=== PATIENT | female | born 1975 | race Caucasian/White ===

== ENCOUNTER → 2023-12-11 14:27 | Outpatient (REF) | payer OTHER, SELFPAY | LOC: HWWDC 14:27 | PROVIDERS: ATTENDING PHYSICIAN Surgery Surgical Critical Care; FAMILY PHYSICIAN Family Medicine | DX: Z12.31 Encounter for screening mammogram for malignant neoplasm of breast (principal) | CPT/HCPCS: 77063; 77067 ==

== ENCOUNTER → 2024-12-12 10:05 | Outpatient (REF) | payer OTHER, SELFPAY | LOC: HWWDC 10:05 | PROVIDERS: ATTENDING PHYSICIAN Surgery Surgical Critical Care; FAMILY PHYSICIAN Family Medicine | DX: Z12.31 Encounter for screening mammogram for malignant neoplasm of breast (principal) | CPT/HCPCS: 77063; 77067 ==

== ENCOUNTER 2024-12-15 23:17 | Emergency (ER) | payer OTHER, SELFPAY ==
[2024-12-15 23:28] VITALS: BP 176/96
[2024-12-15 23:55] VITALS: BMI 35.6
[2024-12-16 00:38] VITALS: BP 152/73
[2024-12-16 00:50] LABS: % Basophils 0.7 % (0-2); % Eosinophils 1.4 % (0-6); % Immature Granulocytes 0.4 % (0-0.5); % Lymphocytes 15.4 % (20.5-51.1); % Neutrophils 77.1 % (42.2-75.2); Absolute Basophils 0.1 10^3/uL (0-0.2); Absolute Eosinophils 0.1 10^3/uL (0-0.7); Absolute Lymphocytes 1.6 10^3/uL (1.2-3.4); Absolute Monocytes 0.5 10^3/uL (0.1-0.6); Absolute Neutrophils 7.8 10^3/uL (1.4-6.5); Hematocrit 38.5 % (37.0-47.0); Hemoglobin 13.8 g/dL (12.0-16.0); Mean Corp Hgb Conc. 35.8 g/dL (33.0-37.0); Mean Corpuscular Hgb 29.2 pg (27.0-31.0); Mean Corpuscular Volume 81.4 fL (81.0-99.0); Mean Platelet Volume 10.3 fL (7.4-10.4); Nucleated Red Blood Cells % 0 %; Platelet Count 277 10^3/uL (130-400); Red Blood Cell Count 4.73 10^6/uL (4.20-5.40); Red Cell Dist. Width 12.5 % (11.5-14.5); White Blood Cell Count 10.1 10^3/uL (4.8-10.8)
[2024-12-16 00:53] LABS: Urine Bilirubin Negative (Negative); Urine Character Clear (Clear); Urine Color Yellow; Urine Glucose Negative (Negative); Urine Ketone 1+ (Negative); Urine Leukocyte Negative (Negative); Urine Nitrite Negative (Negative); Urine Occult Blood Negative (Negative); Urine Urobilinogen Negative (Neg - 1+)
[2024-12-16 00:54] LABS: Urine Albumin Trace (Neg - Trace)
[2024-12-16 01:00] VITALS: BP 157/72
[2024-12-16 01:07] LABS: ALT (SGPT) 30 U/L (0-35); AST (SGOT) 26 U/L (14-36); Albumin 4.6 g/dl (3.5-5.0); Alkaline Phosphatase 81 U/L (38-126); Blood Urea Nitrogen 21 mg/dl (7-17); Calcium 9.7 mg/dl (8.4-10.2); Carbon Dioxide 26 mmol/L (22-30); Chloride 104 mmol/L (98-107); Estimated Creatinine Clearance 96 ml/min; Glucose 142 mg/dl (70-99); Lipase 146 U/L (23-300); Potassium 4.1 mmol/L (3.5-5.1); Sodium 141 mmol/L (135-145); Total Bilirubin 0.5 mg/dl (0.2-1.3); Total Protein 7.9 g/dl (6.3-8.2); eGFR > 60.00
[2024-12-16] MEDS: NSS 1000 IV (01:23)
[2024-12-16] MEDS: PEPCID 20 MG IV (01:23)
[2024-12-16] MEDS: TORADOL 15 MG IV (02:15)
--- NOTE | 2024-12-16 02:32 | ED.GENMED ---
History of Present Illness
General
Chief Complaint: Abdominal Pain
Source: patient
Exam Limitations: none
Time Seen by Provider: 12/16/24 01:05
Nursing documentation reviewed up to this point in time: agreed with
History of Present Illness
History of Present Illness:
49-year-old female presenting to the emergency department today with concerns of epigastric pain and right upper quadrant pain over the past 4 hours associated nausea and vomiting. Has had similar episodes a few times in the last few months.
Denies any chest pain shortness of breath
Past History
Past History
ED Past Medical History: Hypothyroidism
Social History
Tobacco: Non-smoker
Personal:
Living: with family
Review of Systems
Review of Systems
Allergies reviewed?: Yes
All Other Systems: ROS reviewed and negative except as documented in HPI and ROS
Phy Exam
Physical Exam
Physical Exam:
GENERAL: Alert , in no apparent distress
EYE: pupils equal and reactive
NECK: Supple, no significant adenopathy.
ENT: o/p clr, mmm.
CARDIAC: Regular rate and rhythm .
LUNGS: Clear breath sounds bilaterally, no acute respiratory distress, no wheezes/rales/rhonchi
ABDOMEN: Reproducible abdominal pain to the epigastrium some mild pain to the right upper quadrant though negative Lazcano's remainder of the abdomen soft, without focal tenderness, no r/g, no cvat
NEUROLOGICAL: Alert and oriented, no focal neuro deficits
SKIN: Warm and dry, skin intact.
MUSCULOSKELETAL: No edema, well perfused.
PSYCH: Normal and appropriate interaction.
Course
Orders/Labs/Results
Orders:
Orders
12/15/24 23:49
IV Insert/Care/Rem.- Treatment PRN
Complete Blood Count/With Diff Urgent
Comprehensive Metabolic Panel Urgent
Lipase Urgent
Urinalysis Reflex To Culture Urgent
Date Specimen was Collected: 12/15/24
Time Specimen was Collected: 23:49
12/15/24 23:50
Electrocardiogram (*1) Urgent
Reason for Study: Abdominal Pain
EKG- Treatment ONCE
12/16/24 01:13
0.9% Sodium Chloride 1000 ml [Nss] 1,000 ml IV BOLUS
Famotidine [Pepcid] 20 mg IV NOW STA
12/16/24 01:51
US Abdomen Complete/Upper Urgent
Comment:
Reason For Exam: ruq/epigastric pain
12/16/24 02:10
Ketorolac [Toradol] 15 mg IV NOW STA
Abnormal Lab Results
12/16/24
00:36
Absolute Neuts (auto) 7.8 H 10^3/uL
(1.4-6.5)
Neutrophils % 77.1 H %
(42.2-75.2)
Lymphocytes % 15.4 L %
(20.5-51.1)
BUN 21 H mg/dl
(7-17)
Glucose 142 H mg/dl
(70-99)
Urine Ketones 1+ A
(Negative)
12/16/24 00:36
12/16/24 00:36
Vital Signs
Initial and Last Documented VS:
Initial Vital Signs
Temp Pulse Resp BP Pulse Ox
97.8 F 68 20 176/96 99
12/15/24 23:28 12/15/24 23:28 12/15/24 23:28 12/15/24 23:28 12/15/24 23:28
Last Documented Vital Signs
Temp Pulse Resp BP Pulse Ox
97.8 F 68 20 157/72 97
12/15/24 23:28 12/15/24 23:28 12/15/24 23:28 12/16/24 01:00 12/16/24 01:15
MDM/Problems Addressed
MDM/Problems Addressed:
49-year-old female presenting to the emergency department today with concerns of epigastric discomfort over the past 4 hours or so associated nausea and vomiting. Similar episodes a few times in the past. Labs obtained here without acute
abnormalities. Ultrasound performed considering upper abdominal pain. Ultrasound showing mobile gallstones distended gallbladder 9 cm in length upper limits of normal gallbladder wall. Patient here at [facility] has no ongoing discomfor. Has been
asymptomatic for about an hour here. Does not appear to be consistent with a progressive cholecystitis advised for close outpatient follow-up with general surgery. Return precautions given. t
*Critical Care Note
Total Time (30-74mins, 75-104mins- exclusive of procedures): Not Applicable
ED Attending Note
-
Portions of this chart may have been created with voice recognition software.� Occasional wrong word or��sound alike� substitutions may have occurred due to the inherent limitations of voice recognition software.
Discharge Plan
Departure
Patient Disposition: Home (Routine Discharge)
Date of Disposition: 12/16/24
Time of Disposition: 04:57
Patient with high blood pressure during this ER visit?: No
Condition: Good
Covid-19: Not Applicable
Discharge Problem:
Biliary colic
Instructions: Gallstones - Discharge instructions
Prescriptions:
New
ondansetron 4 mg tablet,disintegrating
4 mg PO Q6H PRN (Reason: nausea and vomiting) Qty: 7 0RF
ibuprofen 600 mg tablet
600 mg PO Q8H PRN (Reason: Pain) Qty: 10 0RF
No Action
levothyroxine 100 MCG tablet
100 mcg PO DAILY
ferrous sulfate [Iron (ferrous sulfate)] 325 MG tablet
325 mg PO .4 DAYS A MONTH
cholecalciferol (vitamin D3) [Vitamin D3] 400 UNITS tablet
5,000 units PO DAILY
levothyroxine [Synthroid] 75 mcg tablet
75 mcg PO DAILY Qty: 30 0RF
alprazolam [Xanax] 0.25 mg tablet
0.25 mg PO TID PRN (Reason: anxiety) Qty: 12 0RF
levothyroxine 50 mcg capsule
50 mcg PO DAILY Qty: 30 0RF
alprazolam [Xanax] 0.25 mg tablet
0.25 mg PO HS PRN (Reason: anxiety) Qty: 5 0RF
Referrals:
Charli Kat MD [Family Provider] -
Shaun Bradley MD [Active] - Follow up in 5-7 days
Activity Restrictions/Additional Instructions:
You came to the emergency department today with concerns of abdominal pain. This may be from gallstones. Please follow closely with your general surgeon. Return for any worsening, new or concerning symptoms.
Interventions
Interventions:
*Risk Screen - Suicide Last Done: 12/15/24 23:28
*Neglect/Abuse Screening Last Done: 12/15/24 23:28
*ED- Fall Risk Assessment Last Done: 12/15/24 23:28
*ED COVID-19 Vaccine History Last Done: 12/15/24 23:28
RQ-Xppczg-Xwnnodmcya Assessment Last Done: 12/15/24 23:56
Discharge Date and Time
Print Language: HUNGARIAN
[2024-12-16 05:10] VITALS: BP 126/76
== END 2024-12-16 05:36 | disposition home or self-care (01) ==
LOC: EMR 23:17
PROVIDERS: EMERGENCY PHYSICIAN Student in an Organized Health Care Education/Training Program; FAMILY PHYSICIAN Family Medicine
DX: K80.70 Calculus of gallbladder and bile duct without cholecystitis without obstruction (principal); E03.9 Hypothyroidism, unspecified
CPT/HCPCS: 96374; 96375; 96361; 99284; 76700; 80053; 81003; 83690; 85025; 93005

== ENCOUNTER 2024-12-26 21:18 | Inpatient (IN) | payer OTHER, SELFPAY ==
[2024-12-26] VITALS (8 sets, daily range): BP systolic 134–177; BP diastolic 70–88; BMI 34.5
[2024-12-26 15:11] LABS: % Basophils 0.6 % (0-2); % Eosinophils 3.3 % (0-6); % Immature Granulocytes 0.1 % (0-0.5); % Monocytes 9.7 % (1.7-9.3); % Neutrophils 62.3 % (42.2-75.2); Absolute Eosinophils 0.2 10^3/uL (0-0.7); Absolute Lymphocytes 1.7 10^3/uL (1.2-3.4); Absolute Monocytes 0.7 10^3/uL (0.1-0.6); Absolute Neutrophils 4.5 10^3/uL (1.4-6.5); Hematocrit 38.1 % (37.0-47.0); Hemoglobin 13.3 g/dL (12.0-16.0); Mean Corp Hgb Conc. 34.9 g/dL (33.0-37.0); Mean Corpuscular Hgb 28.7 pg (27.0-31.0); Mean Corpuscular Volume 82.3 fL (81.0-99.0); Mean Platelet Volume 10.6 fL (7.4-10.4); Nucleated Red Blood Cells % 0 %; Platelet Count 269 10^3/uL (130-400); Red Blood Cell Count 4.63 10^6/uL (4.20-5.40); Red Cell Dist. Width 12.4 % (11.5-14.5); White Blood Cell Count 7.2 10^3/uL (4.8-10.8)
[2024-12-26 15:30] LABS: ALT (SGPT) 181 U/L (0-35); AST (SGOT) 272 U/L (14-36); Albumin 4.2 g/dl (3.5-5.0); Alkaline Phosphatase 157 U/L (38-126); Blood Urea Nitrogen 18 mg/dl (7-17); Calcium 9.7 mg/dl (8.4-10.2); Carbon Dioxide 27 mmol/L (22-30); Chloride 106 mmol/L (98-107); Glucose 115 mg/dl (70-99); Lipase 135 U/L (23-300); Potassium 4.1 mmol/L (3.5-5.1); Sodium 140 mmol/L (135-145); Total Bilirubin 2.3 mg/dl (0.2-1.3); Total Protein 7.4 g/dl (6.3-8.2); eGFR > 60.00
[2024-12-26 15:47] LABS: Urine Albumin 1+ (Neg - Trace); Urine Bilirubin Negative (Negative); Urine Character Clear (Clear); Urine Color Yellow; Urine Glucose Negative (Negative); Urine Ketone 1+ (Negative); Urine Leukocyte Negative (Negative); Urine Nitrite Negative (Negative); Urine Occult Blood Negative (Negative); Urine Specific Gravity 1.025 (<1.030); Urine Urobilinogen 1+ (Neg - 1+)
[2024-12-26 16:08] LABS: Urine Bacteria Few (Negative); Urine White Cell 0-2 /HPF (0-5)
--- NOTE | 2024-12-26 18:38 | ED.GENMED ---
History of Present Illness
<Danielle Sauceda PA-C - Last Filed: 12/27/24 01:30>
General
Chief Complaint: Abdominal Symptoms
Source: patient
Exam Limitations: none
Time Seen by Provider: 12/26/24 18:16
Nursing documentation reviewed up to this point in time: agreed with
History of Present Illness
History of Present Illness:
Patient is a 49-year-old female with history of hypothyroid, cholelithiasis presenting to the emergency department with upper abdominal pain. Patient states pain started this morning around 7 AM and describes as a sharp pain in her right upper
abdomen. Pain did radiate into her back. She had 1 episode of vomiting this morning. Patient denies any associated fever/chills, diarrhea/constipation, dysuria. She denies any chest pain or shortness of breath although does state that when she
takes a deep breath it makes the pain worse. Patient did take Motrin however this did not improve symptoms.
Patient was seen in the ED approximately 1.5 weeks ago and diagnosed with biliary colic after gallstones seen on ultrasound. Patient states symptoms have been mild and very intermittent since discharge however today seemed much worse. Patient is
currently scheduled for a outpatient consultation with a general surgeon this .
Past History
<Danielle Sauceda PA-C - Last Filed: 12/27/24 01:30>
Past History
ED Past Medical History: Hypothyroidism
Social History
Tobacco: Non-smoker
Personal:
Living: with family
Review of Systems
<Danielle Sauceda PA-C - Last Filed: 12/27/24 01:30>
Review of Systems
Allergies reviewed?: Yes
All Other Systems: ROS reviewed and negative except as documented in HPI and ROS
Phy Exam
<Danielle Sauceda PA-C - Last Filed: 12/27/24 01:30>
Physical Exam
Physical Exam:
Vitals: Hypertensive, otherwise vital signs stable. Afebrile
General: Patient is well appearing, no acute distress. Nontoxic appearing
Skin: Warm and dry, no rashes or lesions
Head: Normocephalic, atraumatic
Eyes: Sclera nonicteric.
Throat: Protecting airway
Neck: Normal ROM, no cervical spine tenderness, no meningismus
Cardiac: Regular rate and rhythm, no murmurs.
Pulm: Lungs clear
Abdomen: Abdomen soft. Mild to moderate tenderness in epigastric/right upper quadrant. No rebound tenderness or guarding. Negative Lazcano sign.
Extremities: No evidence of cyanosis or edema. Palpable DP pulses bilaterally
Neuro: AAOx3. Grossly intact.
Psychiatric: Normal affect.
Course
<Danielle Sauceda PA-C - Last Filed: 12/27/24 01:30>
Orders/Labs/Results
Orders:
Orders
12/26/24 Breakfast
NPO
Allow oral meds: Yes
Allow clear liquids: No
12/26/24 14:59
Complete Blood Count/With Diff Urgent
Comprehensive Metabolic Panel Urgent
Direct Bilirubin Urgent
Comment: ADDON
Lipase Urgent
Urinalysis Reflex To Culture Urgent
Date Specimen was Collected: 12/26/24
Time Specimen was Collected: 14:42
Urine Microscopic Reflex Cult Urgent
12/26/24 17:44
US Abdomen Limited Urgent
Reason For Exam: RUQ, PAIN, HX GALLSTONES
12/26/24 18:35
Add On- LAB Urgent
Tests Added?: direct bilirubin
12/26/24 18:36
0.9% Sodium Chloride 1000 ml [Nss] 1,000 ml IV BOLUS
Ketorolac [Toradol] 15 mg IV NOW STA
Ondansetron Injectable [Zofran] 4 mg IV NOW STA
12/26/24 19:48
HYDROmorphone [Dilaudid] 0.5 mg IV NOW STA
Piperacillin/Tazo 3.375 Gram [Zosyn] 3.375 gram in 50 ml IV NOW
12/26/24 20:47
Admit/Transfer Patient As Directed
Co-Sign Provider:
Level of Care: Inpatient admission
Assign to:: Medical/Surgical
Physician / Group: chantel
Diagnosis: acute cholecystitis
Reason for Hospitalization: acute cholecystitis
Expected length of stay greater than two midnights?: Yes
ELOS- Estimated Length of Stay in days: 3
I certify the patient meets the requirements for IP care: Yes
Code Status As Directed
Resuscitation Status: Full Code
PRN Pain Medication Management As Directed
May give lesser potent ordered pain med per pt: Yes
preference::
Protocol:: Medication orders for pain may be administered in a
manner that supports deferring to patient preference
when the pt is:
- Requesting an ordered lesser potent pain medication.
Least to most potent pain medications are defined
as: acetaminophen < NSAID < tramadol < opioids
(morphine, oxycodone, hydromorphone).
- Requesting a lesser dose of the same medication IF
ORDERED.
- Requesting a less intrusive route of administration
if both routes are prescribed by the provider (PO <
IV).
12/26/24 21:54
0.9% Sodium Chloride 1000 ml [Nss] 1,000 ml IV 125 mls/hr
Alprazolam [Xanax] 0.25 mg PO BIDPRN PRN
Bisacodyl [Dulcolax] 10 mg RECTAL [id number] PRN
Docusate W/Senna [Senokot-S] 1 tablet PO BIDPRN PRN
HYDROmorphone [Dilaudid] 0.5 mg IV Q4HPRN PRN
Ibuprofen [Motrin] 400 mg PO Q6HPRN PRN
Polyethylene Glycol Powder [Miralax] 17 grams PO DAILYPRN PRN
12/26/24 21:54
SURGICAL CONSULT Routine
Consulting Provider: Varinder Brown
Was physician already notified: Yes
MRI Abdomen [MR Abdomen With Contrast] Routine
Comment: MRI with MRCP
Reason For Exam: abdominal pain
Recent pill cam endoscopy?: No
Activity As Directed
Activity Level: As Tolerated
Pneumatic Compression Sleeves As Directed
Type: Knee high
Vital Signs As Directed
Frequency: Per unit guidelines
DX Deep Vein Thrombosis Video Routine
12/27/24 02:00
Piperacillin/Tazo 3.375 Gram [Zosyn] 3.375 gram in 50 ml IV Q6H
12/27/24 06:00
Levothyroxine [Synthroid] 88 mcg PO DAILY @ 0600
Abnormal Lab Results
12/26/24
14:59
MPV 10.6 H fL
(7.4-10.4)
Absolute Monos (auto) 0.7 H 10^3/uL
(0.1-0.6)
Monocytes % 9.7 H %
(1.7-9.3)
BUN 18 H mg/dl
(7-17)
Glucose 115 H mg/dl
(70-99)
Total Bilirubin 2.3 H mg/dl
(0.2-1.3)
Direct Bilirubin 1.2 H mg/dl
(0.0-0.4)
AST 272 H U/L
(14-36)
ALT 181 H U/L
(0-35)
Alkaline Phosphatase 157 H U/L
(38-126)
Urine Ketones 1+ A
(Negative)
Urine RBC 3-6 A /HPF
(0-2)
Urine Bacteria (Reflex) Few A
(Negative)
Urine Albumin (Reflex) 1+ A
(Neg - Trace)
12/26/24 14:59
12/26/24 14:59
Vital Signs
Initial and Last Documented VS:
Initial Vital Signs
Temp Pulse Resp BP Pulse Ox
98.2 F 60 16 171/88 98
12/26/24 14:39 12/26/24 14:39 12/26/24 14:39 12/26/24 14:39 12/26/24 14:39
Last Documented Vital Signs
Temp Pulse Resp BP Pulse Ox
97.8 F 62 17 134/74 96
12/26/24 23:35 12/26/24 23:35 12/26/24 23:35 12/26/24 23:35 12/26/24 23:35
<Georgie Begum MD - Last Filed: 12/26/24 20:53>
Orders/Labs/Results
Orders:
Orders
12/26/24 Breakfast
NPO
Allow oral meds: Yes
Allow clear liquids: No
12/26/24 14:59
Complete Blood Count/With Diff Urgent
Comprehensive Metabolic Panel Urgent
Direct Bilirubin Urgent
Comment: ADDON
Lipase Urgent
Urinalysis Reflex To Culture Urgent
Date Specimen was Collected: 12/26/24
Time Specimen was Collected: 14:42
Urine Microscopic Reflex Cult Urgent
12/26/24 17:44
US Abdomen Limited Urgent
Reason For Exam: RUQ, PAIN, HX GALLSTONES
12/26/24 18:35
Add On- LAB Urgent
Tests Added?: direct bilirubin
12/26/24 18:36
0.9% Sodium Chloride 1000 ml [Nss] 1,000 ml IV BOLUS
Ketorolac [Toradol] 15 mg IV NOW STA
Ondansetron Injectable [Zofran] 4 mg IV NOW STA
12/26/24 19:48
HYDROmorphone [Dilaudid] 0.5 mg IV NOW STA
Piperacillin/Tazo 3.375 Gram [Zosyn] 3.375 gram in 50 ml IV NOW
12/26/24 20:47
Admit/Transfer Patient As Directed
Co-Sign Provider:
Level of Care: Inpatient admission
Assign to:: Medical/Surgical
Physician / Group: chantel
Diagnosis: acute cholecystitis
Reason for Hospitalization: acute cholecystitis
Expected length of stay greater than two midnights?: Yes
ELOS- Estimated Length of Stay in days: 3
I certify the patient meets the requirements for IP care: Yes
Code Status As Directed
Resuscitation Status: Full Code
PRN Pain Medication Management As Directed
May give lesser potent ordered pain med per pt: Yes
preference::
Protocol:: Medication orders for pain may be administered in a
manner that supports deferring to patient preference
when the pt is:
- Requesting an ordered lesser potent pain medication.
Least to most potent pain medications are defined
as: acetaminophen < NSAID < tramadol < opioids
(morphine, oxycodone, hydromorphone).
- Requesting a lesser dose of the same medication IF
ORDERED.
- Requesting a less intrusive route of administration
if both routes are prescribed by the provider (PO <
IV).
12/26/24 21:54
0.9% Sodium Chloride 1000 ml [Nss] 1,000 ml IV 125 mls/hr
Alprazolam [Xanax] 0.25 mg PO BIDPRN PRN
Bisacodyl [Dulcolax] 10 mg RECTAL [id number] PRN
Docusate W/Senna [Senokot-S] 1 tablet PO BIDPRN PRN
HYDROmorphone [Dilaudid] 0.5 mg IV Q4HPRN PRN
Ibuprofen [Motrin] 400 mg PO Q6HPRN PRN
Polyethylene Glycol Powder [Miralax] 17 grams PO DAILYPRN PRN
12/26/24 21:54
SURGICAL CONSULT Routine
Consulting Provider: Varinder Brown
Was physician already notified: Yes
MRI Abdomen [MR Abdomen With Contrast] Routine
Comment: MRI with MRCP
Reason For Exam: abdominal pain
Recent pill cam endoscopy?: No
Activity As Directed
Activity Level: As Tolerated
Pneumatic Compression Sleeves As Directed
Type: Knee high
Vital Signs As Directed
Frequency: Per unit guidelines
DX Deep Vein Thrombosis Video Routine
12/27/24 02:00
Piperacillin/Tazo 3.375 Gram [Zosyn] 3.375 gram in 50 ml IV Q6H
12/27/24 06:00
Levothyroxine [Synthroid] 88 mcg PO DAILY @ 0600
Abnormal Lab Results
12/26/24
14:59
MPV 10.6 H fL
(7.4-10.4)
Absolute Monos (auto) 0.7 H 10^3/uL
(0.1-0.6)
Monocytes % 9.7 H %
(1.7-9.3)
BUN 18 H mg/dl
(7-17)
Glucose 115 H mg/dl
(70-99)
Total Bilirubin 2.3 H mg/dl
(0.2-1.3)
Direct Bilirubin 1.2 H mg/dl
(0.0-0.4)
AST 272 H U/L
(14-36)
ALT 181 H U/L
(0-35)
Alkaline Phosphatase 157 H U/L
(38-126)
Urine Ketones 1+ A
(Negative)
Urine RBC 3-6 A /HPF
(0-2)
Urine Bacteria (Reflex) Few A
(Negative)
Urine Albumin (Reflex) 1+ A
(Neg - Trace)
12/26/24 14:59
12/26/24 14:59
Vital Signs
Initial and Last Documented VS:
Initial Vital Signs
Temp Pulse Resp BP Pulse Ox
98.2 F 60 16 171/88 98
12/26/24 14:39 12/26/24 14:39 12/26/24 14:39 12/26/24 14:39 12/26/24 14:39
Last Documented Vital Signs
Temp Pulse Resp BP Pulse Ox
97.8 F 62 17 134/74 96
12/26/24 23:35 12/26/24 23:35 12/26/24 23:35 12/26/24 23:35 12/26/24 23:35
<Danielle Sauceda PA-C - Last Filed: 12/27/24 01:30>
MDM/Problems Addressed
Differential Diagnosis Includes:
Not limited to: Biliary colic, acute cholecystitis, choledocholithiasis, pancreatitis, cholangitis, etc.
MDM/Problems Addressed:
49-year-old female with known cholelithiasis presents with persistent right upper abdominal pain since this morning. No fever, vomiting. Vitals and physical exam as above. Patient well-appearing, nontoxic. Abdomen is soft with mild to moderate
tenderness in epigastric/right upper quadrant without rebound tenderness or guarding. Cardio/pulmonary assessment unremarkable. Labs initiated in triage. CBC unremarkable�no leukocytosis. Chemistry shows elevated bilirubin of 2.3 with an
obstructive transaminitis AST/ALT 272/181 and alk phos of 157. Concern for obstructive process such as choledocholithiasis given known cholelithiasis now with new transaminitis. Will check direct bilirubin. Will obtain abdominal ultrasound. Will
treat pain and give IV fluids. Will closely monitor and reassess.
Update: Direct bilirubin elevated at 1.2. Ultrasound shows a dilated CBD with findings of acute cholecystitis including gallbladder wall thickening, gallbladder distention, and cholelithiasis. Given dilation CBD�patient will require MRCP to rule
out choledocholithiasis prior to possible cholecystectomy. Case discussed with general surgery. Will start patient on IV Zosyn in ED. Patient accepted to hospitalist service in stable condition. General surgery will consult.
Chronic conditions affecting care:
Cholelithiasis
Acute Exacerbation and/or Progression of Chronic Illness:
Acute cholecystitis with obstructive transaminitis
<Danielle Sauceda PA-C - Last Filed: 12/27/24 01:30>
*Radiology
Radiology exam reviewed: radiology read reviewed
*Pulse Oximetry
Patient hypoxic: no
*EKG
Interpreted by ED Provider?: NA
*Oakes Machine Operator Interpretation
Rate: Oakes Machine Operator- N/A
*Critical Care Note
Total Time (30-74mins, 75-104mins- exclusive of procedures): Not Applicable
Data Reviewed
Review of Other/Old Records Reveals: Radiology Studies (Abdominal ultrasound from 12/16/2024 which shows findings of biliary colic and cholelithiasis) and Discharge Summary (ED discharge summary from 12/16/2024 with biliary colic and outpatient
general surgery referral)
<Danielle Sauceda PA-C - Last Filed: 12/27/24 01:30>
Patient Management
Discussion with other providers: Hospitalist and Process Developer (Case discussed with general surgery)
Escalation/DeEscalation of care consider admission/obs:
Admit for MRCP, GI and general surgery consult
ED Attending Note
<Danielle Sauceda PA-C - Last Filed: 12/27/24 01:30>
-
Portions of this chart may have been created with voice recognition software.� Occasional wrong word or��sound alike� substitutions may have occurred due to the inherent limitations of voice recognition software.
<Georgie Begum MD - Last Filed: 12/26/24 20:53>
ED Attending Note
Patient seen and examined by attending physician: Yes
I performed the substantive portion of visit, reviewed & personally made and approve the management plan that is documented in note by myself or MARVIN.: Yes
ED Attending Note:
Patient appears well nontoxic. Heart sounds regular lungs are clear. Abdomen is soft with some very mild right sided abdominal tenderness. No rebound or guarding
Discharge Plan
Departure
Patient Disposition: Admit
Date of Disposition: 12/26/24
Time of Disposition: 20:14
Presentation/result/management discussed w/ accepting MD/DO: Hospitalist
Discharge Problem:
Cholelithiases, Transaminitis, Elevated bilirubin
Interventions
Interventions:
*Risk Screen - Suicide Last Done: 12/26/24 14:39
*General Assessment Last Done: 12/26/24 18:46
*Neglect/Abuse Screening Last Done: 12/26/24 14:39
*ED- Fall Risk Assessment Last Done: 12/26/24 18:46
*ED COVID-19 Vaccine History Last Done: 12/26/24 18:46
*Nursing Disposition Last Done: 12/26/24 21:48
KR-Cfhzyg-Mjfvqashzk Assessment Last Done: 12/26/24 18:45
Discharge Date and Time
Discharge Date/Time: 12/26/24 21:49
[2024-12-26] MEDS: NSS 1000 IV ×2 (18:45→22:38)
[2024-12-26] MEDS: TORADOL 15 MG IV (18:45)
[2024-12-26 19:28] LABS: Direct Bilirubin 1.2 mg/dl (0.0-0.4)
[2024-12-26] MEDS: DILAUDID 0.5 MG IV (19:57)
[2024-12-26] MEDS: ZOSYN 50 IV (20:21)
--- NOTE | 2024-12-26 20:34 | HPS.HSE ---
Family Physician
-
Family Physician: Charli Kat MD
Chief Complaint
-
abdominal pain
History of Present Illness
49-year-old female with history of hypothyroid, cholelithiasis presenting to the emergency department with upper abdominal pain since this morning. patient vomited this morning. Denied diarrhea or constipation. Patient denied any fever or chills,
chest pain, short of breath. Patient denied any headache, dizzy or syncope. Patient denied dysuria or hematuria.
Ultrasound of abdomen with impression of diffuse gallbladder wall thickening, mild gallbladder distention and cholelithiasis. Acute calculus cholecystitis cholecystitis
Patient received IV Zosyn, Dilaudid in the ER admitting for further management.
Medical History
Past Medical History
Past Medical History: Reports Hyperthyroidism
Past Surgical History: Reports Other
Additional Past Surgical History:
Appendectomy
Bilateral breast lumpectomy
Social History
Tobacco: Non-smoker
Alcohol: None
Drug: None
Personal:
Living: With Family
Family History
Family History: Not pertinent
Allergies / Home Medications
Allergies reflects when Allergies were last updated in [employer].
Home Medications with original date entered in [employer]
Allergy/Medication List:
Allergies
Allergy/AdvReac Type Severity Reaction Status Date / Time
No Known Allergies Allergy Verified 12/26/24 14:41
Home Medications
cholecalciferol (vitamin D3) 10 mcg (400 unit) tablet (Vitamin D3) 5,000 units PO DAILY 06/14/20
ferrous sulfate 325 mg (65 mg iron) tablet (Iron (ferrous sulfate)) 325 mg PO .4 DAYS A MONTH 06/14/20
levothyroxine 100 mcg tablet 100 mcg PO DAILY 06/14/20
alprazolam 0.25 mg tablet (Xanax) 0.25 mg PO TID PRN anxiety #12 tabs 08/08/23
levothyroxine 75 mcg tablet (Synthroid) 75 mcg PO DAILY #30 tabs 08/08/23
alprazolam 0.25 mg tablet (Xanax) 0.25 mg PO HS PRN anxiety #5 tabs 08/31/23
levothyroxine 50 mcg capsule 50 mcg PO DAILY #30 caps 08/31/23
ibuprofen 600 mg tablet 600 mg PO Q8H PRN Pain #10 tabs 12/16/24
ondansetron 4 mg disintegrating tablet 4 mg PO Q6H PRN nausea and vomiting #7 tabs 12/16/24
Review of Systems
-
Constitutional: Reports No Symptoms
EENT: Reports No Symptoms
Respiratory: Reports No Symptoms
Cardiac: Reports No Symptoms
Abdomen/GI: Reports Abdominal Pain, Nausea and Vomiting
: Reports No Symptoms
Musculoskeletal: Reports No Symptoms
Skin: Reports No Symptoms
Neurological: Reports No Symptoms
Endocrine: Reports No Symptoms
Hematologic/Lymphatic: Reports No Symptoms
Psych: Reports No Symptoms
Physical Exam
Vital Signs
Vital Signs
Temp Pulse Resp BP Pulse Ox
98.2 F 108 19 177/87 100
12/26/24 14:39 12/26/24 20:00 12/26/24 20:00 12/26/24 20:00 12/26/24 20:00
Physical Exam
General: Well Developed, Well Nourished and No Apparent Distress
HEENT: NormoCephalic, Moist mucous membranes and Atraumatic
Respiratory: Clear
Cardiac: S1/S2 and Regular Rhythm; No Murmur or Rub
GI: Soft, Non Tender, Non Distended and Normal Bowel Sounds; No Organomegaly
Rectal: Deferred by Provider
Musculoskeletal: No Clubbing, No Cyanosis and No Edema
Skin: No Rash
Neuro: AO x 3 and Nonfocal/grossly intact
Psych: Calm
Laboratory Results
-
12/26/24 14:59
12/26/24 14:59
Laboratory Results
Total Bilirubin 2.3 mg/dl (0.2-1.3) H 12/26/24 14:59
AST 272 U/L (14-36) H 12/26/24 14:59
ALT 181 U/L (0-35) H 12/26/24 14:59
Alkaline Phosphatase 157 U/L (38-126) H 12/26/24 14:59
Lipase 135 U/L (23-300) 12/26/24 14:59
Data Reviewed
-
Ultrasound: Report Reviewed by me
Lab Data: Labs Reviewed by me
Impression/Plan
-
# Cholelithiasis with obstructive transaminitis
- T. bili elevated to 2.3, AST/ALT 272/181 with alk phos of 157
- Ultrasound shows Diffuse gallbladder wall thickening, mild gallbladder distention, and cholelithiasis. ACUTE CALCULUS CHOLECYSTITIS is a diagnostic possibility.
2. Mild intrahepatic and extrahepatic biliary dilatation.
3. Severe diffuse liver disease (probably severe diffuse hepatic steatosis).
- IV Zosyn
-Dilaudid as needed for pain
- Keep patient n.p.o.
- MRCP
-surgery consulted
# Hypothyroidism
- Levothyroxine continued
#DVT prophylaxis
- SCD
# CODE STATUS
- Full code
--- NOTE | 2024-12-26 20:49 | W.PN.UPDATE ---
Update Note
Progress Note Update
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
49-year-old female past medical history of cholelithiasis, hypothyroidism, anxiety/depression, presenting with upper abdominal pain.
Vital signs show blood pressure 170s.
Labs show transaminitis with bilirubin of 2.3.� Abdominal ultrasound shows diffuse gallbladder wall thickening, mild gallbladder distention, cholelithiasis, mild intrahepatic and extrahepatic biliary dilatation.� Severe diffuse liver disease
probably steatosis.
Patient with acute cholecystitis.
N.p.o., IV fluids, Zosyn, pain control.� General surgery consulted and recommended MRI with MRCP.
--- NOTE | 2024-12-26 23:19 | PTCARENOTE ---
Pt arrived 2200 from ED pt was able to ambul;ate into room. VSS. IVF. oriented to room and call interiano. bed locked and in lowest position.
[2024-12-27] MEDS: ZOSYN 50 IV ×4 (02:47→20:23)
[2024-12-27] MEDS: SYNTHROID 88 MCG PO (06:04)
[2024-12-27] MEDS: NSS 1000 IV ×2 (07:23→19:28)
[2024-12-27 07:40] VITALS: BP 137/74
--- NOTE | 2024-12-27 07:40 | CON.GS ---
Medical History
-
Chief Complaint: RUQ abdominal pain
History of Present Illness:
Patient is a 49 yo F with a PMH of obesity, anxiety, hypothyroid, s/p bilateral breast lumpectomy and s/p appendectomy who presents with recurrent attack of RUQ abdominal pain. Ms. Arreguin states that she initially developed attacks approximately
2 months ago. She initially attributed these intermittent attacks of epigastric and RUQ discomfort to an issue with her stomach. Attacks would last minutes before self resolving. She reports a more severe attack of discomfort after having sausage
last week. ER evaluation on 12/15/2024. Diagnosed with biliary colic at that time. Symptoms improved prompting discharge with outpatient follow-up. She reports a recurrent attack of pain and discomfort that began yesterday morning. Associated
nausea and vomiting. No fevers or chills. She denies any jaundice, pale stools, or tea colored urine. No family history of gallbladder issues. Currently she states that her symptoms are improved.
Past Medical History
Past Medical History: Hypothyroidism and Psychiatric (Anxiety)
Past Surgical History: Appendectomy and Other (S/p bilateral breast lumpectomy)
Social History
Tobacco: Non-Smoker
Alcohol: None
Drug: None
Personal:
Living: With Family
Family History
Family History: Reviewed & Noncontributory
Allergies / Home Medications
Allergy/AdvReac Type Severity Reaction Status Date / Time
No Known Allergies Allergy Verified 12/26/24 14:41
�Medication �Instructions �Recorded �Confirmed �Type
alprazolam 0.25 mg tablet (Xanax) 0.25 mg PO BIDPRN PRN anxiety 12/26/24 12/26/24 History
cholecalciferol (vitamin D3) 25 25 mcg PO DAILY 12/26/24 12/26/24 History
mcg (1,000 unit) tablet (Vitamin
D3)
ibuprofen 600 mg tablet 600 mg PO Q6HPRN PRN mild pain 12/26/24 12/26/24 History
levothyroxine 88 mcg tablet 88 mcg PO DAILY 12/26/24 12/26/24 History
(Synthroid)
Review of Systems
-
A 10 point review of systems was completed, and was negative except as per HPI.
Physical Exam
Vital Signs
Temp Pulse Resp BP Pulse Ox
98.2 F 63 17 134/74 97
12/27/24 03:40 12/27/24 03:40 12/27/24 03:40 12/26/24 23:35 12/27/24 03:40
12/26/24 12/27/24 12/28/24
06:59 06:59 06:59
Actual Weight 96.9 kg
Body Mass Index (BMI) 34.5
Lab Results
12/26/24 14:59
12/26/24 14:59
WBC 7.2 10^3/uL (4.8-10.8) 12/26/24 14:59
Hgb 13.3 g/dL (12.0-16.0) 12/26/24 14:59
Hct 38.1 % (37.0-47.0) 12/26/24 14:59
Plt Count 269 10^3/uL (130-400) 12/26/24 14:59
Abs Immat Gran (auto) 0.0 10^3/uL (0-0.05) 12/26/24 14:59
Neutrophils % 62.3 % (42.2-75.2) 12/26/24 14:59
Physical Exam
General: Well Developed, Well Nourished and No Apparent Distress
HEENT: Normocephalic and Anicteric
Respiratory: Non Labored Respirations
Cardiac: Regular Rhythm
GI: Soft, Non Distended, Tender (Minimal RUQ tenderness, negative Lazcano sign), Incisions (Well-healed), Obese and Other (No diffuse peritonitis)
Musculoskeletal: No Edema
Skin: Warm and Dry
Neuro: Nonfocal/Grossly Intact
Data Reviewed
-
Ultrasound: Image Personally Visualized and interpreted and Report Reviewed by me
Labs: Labs Reviewed by me
Old Records: Reviewed
Assessment / Plan
-
Patient is a 49 yo F p/w recurrent attacks of biliary colic versus choledocholithiasis.
Labs demonstrating an elevated bilirubin and LFTs as well as ultrasound demonstrating a dilated CBD raise concern for possible choledocholithiasis. The natural history of and pathophysiology of biliary and stone disease was discussed. Anatomy was
reviewed utilizing pictorial images. Workup thus far was reviewed. Options for management were reviewed. We discussed ultimately she will need to have her gallbladder removed. We discussed further workup with an MRI to help rule out a CBD stone
versus proceeding with a laparoscopic cholecystectomy with intraoperative cholangiogram. MRI has been ordered overnight. Will discuss with the OR on logistics and timing to coordinate the above.
Ultimately plan for a laparoscopic cholecystectomy with possible cholangiogram. The procedure itself, as well as the risks, benefits, and alternatives was discussed. Specifically, we discussed the risk of bleeding, infection, injury to surrounding
structures (bowel, bile ducts), CBD injury, need for open procedure. Typical postprocedure recovery including pain management and the 10 to 20% risk of fluctuations in GI function were discussed. All questions answered.
-- MRI abdomen pending
-- Laparoscopic cholecystectomy with IOC timing TBD
-- NPO, IVF
-- Abx: Zosyn
-- Pain control: Tylenol, IV Dilaudid
--- NOTE | 2024-12-27 10:45 | W.PN.HOSP.TC ---
Today's Communication/Plan
-
awaiting MRI
appreciate GS
IV Zosyn
IVF
NPO
Assessment / Plan
Assessment / Plan
Ms. Anuja Arreguin is a 49 yo woman with hx cholelithiasis, hypothyroidism, anxiety/depression presents with upper abodminal pain with abdominal US showing mild intra/extrahepatic biliary dilation and acute cholecystitis.
Abdominal US 12/26/24
IMPRESSION:
1. Diffuse gallbladder wall thickening, mild gallbladder distention, and cholelithiasis. ACUTE CALCULUS CHOLECYSTITIS is a diagnostic possibility.
2. Mild intrahepatic and extrahepatic biliary dilatation.
3. Severe diffuse liver disease (probably severe diffuse hepatic steatosis).
Acute Cholecystitis with Mild intra and extrahepatic biliary dilation seen on US
- patient admitted to medicine with GS consulting
- MRI abdomen ordered to assess biliary ducts
- repeat labs now
- IV Zosyn
-Dilaudid as needed for pain
- NPO
- appreciate GS; eventual lap cholecystectomy with IOC
# Hypothyroidism
- Levothyroxine continued
#DVT prophylaxis
- SCD
# CODE STATUS
- Full code
Anticipated Discharge: 24 - 48 hours
Subjective/Interval History
-
Date of Service: December 27, 2024
pain improved this morning
she's awaiting MRI
Objective Data
-
Vital Signs:
Vital Signs
Temp Pulse Resp BP Pulse Ox
98.5 F 57 16 137/74 97
12/27/24 07:40 12/27/24 07:40 12/27/24 07:40 12/27/24 07:40 12/27/24 07:40
I&O
12/26/24 12/27/24 12/28/24
06:59 06:59 06:59
Intake Total 1290 / 1290
Balance 1290 / 1290
Review of Systems
-
History Source: Patient
All other systems: Reviewed and negative
Physical Exam
-
General: No Apparent Distress
HEENT: PERRLA
Respiratory: Clear to Auscultation; Negative Wheezes
Cardiac: Regular Rhythm and S1/S2
GI: Soft and Nontender
Skin: Warm and Dry; Negative Rash
Neuro: AO x 3
Psych: Calm
Data Reviewed
-
Diagnostic Radiology: Report Reviewed by me
Labs: Labs Reviewed by me
--- NOTE | 2024-12-27 11:03 | CM ---
Reviewed the chart notes and spoke with the patient at the bedside. The patient anticipates going to the OR today for mike samaniego. The patient resides with her spouse in a two story home with one step to enter. The patient reports no DME/VN /SNF in
the past. The patient confirmed her pharmacy of choice is the [facility]. CM continues to be available to patient/family and is monitoring medical plan for needs at discharge.
Plan: Discharge to home when medically stable. No needs anticipated at this time.
[2024-12-27 11:25] LABS: % Basophils 1.3 % (0-2); % Eosinophils 7.4 % (0-6); % Immature Granulocytes 0.3 % (0-0.5); % Lymphocytes 17.4 % (20.5-51.1); % Monocytes 11.3 % (1.7-9.3); % Neutrophils 62.3 % (42.2-75.2); Absolute Basophils 0.1 10^3/uL (0-0.2); Absolute Eosinophils 0.3 10^3/uL (0-0.7); Absolute Lymphocytes 0.7 10^3/uL (1.2-3.4); Absolute Monocytes 0.4 10^3/uL (0.1-0.6); Absolute Neutrophils 2.4 10^3/uL (1.4-6.5); Hematocrit 36.8 % (37.0-47.0); Hemoglobin 12.7 g/dL (12.0-16.0); Mean Corp Hgb Conc. 34.5 g/dL (33.0-37.0); Mean Corpuscular Hgb 28.5 pg (27.0-31.0); Mean Corpuscular Volume 82.5 fL (81.0-99.0); Mean Platelet Volume 10.7 fL (7.4-10.4); Nucleated Red Blood Cells % 0 %; Platelet Count 241 10^3/uL (130-400); Red Blood Cell Count 4.46 10^6/uL (4.20-5.40); Red Cell Dist. Width 12.6 % (11.5-14.5); White Blood Cell Count 3.9 10^3/uL (4.8-10.8)
[2024-12-27 11:50] LABS: ALT (SGPT) 618 U/L (0-35); AST (SGOT) 583 U/L (14-36); Albumin 3.6 g/dl (3.5-5.0); Alkaline Phosphatase 196 U/L (38-126); Blood Urea Nitrogen 9 mg/dl (7-17); Calcium 9.2 mg/dl (8.4-10.2); Carbon Dioxide 27 mmol/L (22-30); Chloride 109 mmol/L (98-107); Estimated Creatinine Clearance 87 ml/min; Glucose 89 mg/dl (70-99); Magnesium 1.9 mg/dl (1.6-2.3); Potassium 4.1 mmol/L (3.5-5.1); Sodium 142 mmol/L (135-145); Total Bilirubin 4.3 mg/dl (0.2-1.3); Total Protein 6.4 g/dl (6.3-8.2); eGFR > 60.00
[2024-12-27 15:39] VITALS: BP 146/74
[2024-12-27 23:00] VITALS: BP 134/73
[2024-12-28] VITALS (12 sets, daily range): BP systolic 131–149; BP diastolic 62–80
[2024-12-28] MEDS: ZOSYN 50 IV ×4 (02:29→19:55)
[2024-12-28] MEDS: NSS 1000 IV ×2 (04:34→21:35)
[2024-12-28] MEDS: SYNTHROID 88 MCG PO (04:38)
[2024-12-28 07:14] LABS: % Basophils 1.4 % (0-2); % Eosinophils 7.1 % (0-6); % Immature Granulocytes 0.5 % (0-0.5); % Lymphocytes 26.1 % (20.5-51.1); % Neutrophils 52.9 % (42.2-75.2); Absolute Basophils 0.1 10^3/uL (0-0.2); Absolute Eosinophils 0.3 10^3/uL (0-0.7); Absolute Lymphocytes 1.1 10^3/uL (1.2-3.4); Absolute Monocytes 0.5 10^3/uL (0.1-0.6); Absolute Neutrophils 2.3 10^3/uL (1.4-6.5); Hematocrit 35.8 % (37.0-47.0); Hemoglobin 12.3 g/dL (12.0-16.0); Mean Corp Hgb Conc. 34.4 g/dL (33.0-37.0); Mean Corpuscular Hgb 28.4 pg (27.0-31.0); Mean Corpuscular Volume 82.7 fL (81.0-99.0); Mean Platelet Volume 10.5 fL (7.4-10.4); Nucleated Red Blood Cells % 0 %; Platelet Count 237 10^3/uL (130-400); Red Blood Cell Count 4.33 10^6/uL (4.20-5.40); Red Cell Dist. Width 12.8 % (11.5-14.5); White Blood Cell Count 4.3 10^3/uL (4.8-10.8)
[2024-12-28 07:31] LABS: ALT (SGPT) 513 U/L (0-35); AST (SGOT) 293 U/L (14-36); Albumin 4.2 g/dl (3.5-5.0); Alkaline Phosphatase 213 U/L (38-126); Blood Urea Nitrogen 9 mg/dl (7-17); Calcium 9.2 mg/dl (8.4-10.2); Carbon Dioxide 22 mmol/L (22-30); Chloride 107 mmol/L (98-107); Estimated Creatinine Clearance 87 ml/min; Glucose 69 mg/dl (70-99); Magnesium 1.7 mg/dl (1.6-2.3); Potassium 3.8 mmol/L (3.5-5.1); Sodium 142 mmol/L (135-145); Total Bilirubin 2.4 mg/dl (0.2-1.3); Total Protein 6.9 g/dl (6.3-8.2); eGFR > 60.00
--- NOTE | 2024-12-28 09:13 | OR.RPT ---
Operative Report
Operative Report
Primary Surgeon: Chris
Assisting: Jose M REYNA
Pre-op Diagnosis: Acute cholecystitis
Post-op Diagnosis: Same
Procedure Performed: Robot assisted laparoscopic cholecystectomy
Anesthesia Type: GETA
Specimen / Cultures: Gallbladder
Estimated Blood Loss: 2cc
Complications: None immediate
Operative Findings: Mildly inflamed gallbladder with thickened wall, mild wall edema, fibrotic posterior plane
Date of Surgery:� 12/28/24
Indications: This 49F developed acute calculous cholecystitis. Lab work showed elevated liver enzymes. Imaging showed no ductal dilation. MRI was negative fro choledocholithiasis. Laparoscopic cholecystectomy with robotic assist was elected.
Description of procedure: The patient was placed on the operating table in the supine position. General anesthesia was induced. A time-out was completed verifying correct patient, procedure, site, positioning, and special equipment prior to
beginning this procedure. An orogastric tube was placed. The abdomen was prepped and draped in the usual sterile fashion. A stab incision was made in left upper quadrant and the Veress needle was inserted. Proper position was confirmed by aspiration
and saline meniscus test. The abdomen was insufflated with carbon dioxide to a pressure of 12mmHg. The patient tolerated insufflation well.
A 8mm trocar was then inserted above the umbilicus. The laparoscope was inserted and the abdomen inspected. No injuries from initial trocar placement or Veress needle insertion were noted. Additional 8mm trocars were then inserted in the following
locations: two in the right lower quadrant and to the left of the umbilicus and just above. The abdomen was inspected and no abnormalities were found. The table was placed in the reverse Trendelenburg position with the right side up. The dome of
the gallbladder was grasped with an atraumatic grasper and retracted over the dome of the liver. The infundibulum was then grasped with an atraumatic grasper and retracted toward the right lower quadrant. This maneuver exposed Calot�s triangle. The
gallbladder had a mildly thickened wall with mild wall edema. The peritoneum overlying the gallbladder infundibulum was then incised and the cystic duct and cystic artery identified and circumferentially dissected so that a clear view of the liver
was achieved through a window between the cystic duct an cystic artery. At this time, the only two structures going into the gallbladder were the cystic artery and cystic duct. The common duct was identified with ICG and protected.
The cystic duct was then doubly clipped and divided. The cystic artery was controlled with bipolar and divided. The gallbladder was then dissected from its peritoneal attachments by electrocautery. The gallbladder was removed using an endoscopic
retrieval bag placed through the umbilical port. The gallbladder was passed off the table as a specimen. The gallbladder fossa was closely inspected. There was no evidence of bleeding from the gallbladder fossa or cystic artery or leakage of the
bile from the cystic duct stump. The umbilical trocar site was closed at the fascial level with 2-0 PDS. Secondary trocars were removed under direct vision and noted to be hemostatic. The abdomen was allowed to collapse. The skin was closed with
subcuticular sutures of 4-0 monocryl and topical skin adhesive. The orogastric tube was removed.
The patient tolerated the procedure well and was taken to the postanesthesia care unit in stable condition.
[2024-12-28] MEDS: DILAUDID 0.5 MG IV ×2 (09:42→22:15)
--- NOTE | 2024-12-28 10:00 | PTCARENOTE ---
Pt received from the OR via bed. Transport was w/o incident. Pt is AAOx3, HRR, Lungs are clear, abd distended with 4 Lap sites and 1 poke site, all well approximated with surgical glue, no drainage noted. Pt denies nausea, and reports her pain as
mild at this time. Will medicate for pain and nausea as needed. VSS, Pt is afebrile. Pt and Pt's instructed on plan of care. Both Pt and verbalized understanding of instructions. Call interiano is within reach.
--- NOTE | 2024-12-28 11:49 | CM ---
Reviewed the chart notes. Patient to OR today for robot assisted laparoscopic cholecystectomy. CM continues to be available to patient/family and is monitoring medical plan for needs at discharge.
Plan: Discharge to home when medically stable. No needs anticipated at this time.
--- NOTE | 2024-12-28 13:06 | W.PN.HOSP.TC ---
Addendum entered and electronically signed by Homero Guerrero DO 12/28/24 16:19:
Developed some generalized/sporadic paresthesias following OR. On exam no FND but she complains of numbness in the LEs, face, and arms bilateral, not within any regional distribution. Suspect reaction to asnesthesia. Will hold off on DC and check
Stat CT head. Surgery and anesthesia notified. Neurochecks Q4 for now and consider MRI brain w/o
Original Note:
Today's Communication/Plan
-
Plan for OR today
IV Zosyn
Follow-up IOC
Trend LFTs and CBC
Assessment / Plan
Assessment / Plan
#Acute Cholecystitis
#Choledocholithiasis (?)
-Mild intra and extrahepatic biliary dilation seen on US
-patient admitted to medicine with GS consulting
-MRI abdomen showed acute calculus cholecystitis, mild biliary dilation without choledocholithiasis, diffuse hepatic steatosis
-Did have elevation to transaminases and bilirubin concerning for choledocholithiasis
-Started on IV Zosyn empirically with plan for OR on 12/28, plan for IOC
-Continue with antiemetics and analgesics, trend LFTs and CBC
-Follow-up intraoperative cholangiogram and consider GI conult
#Hypothyroidism
-Levothyroxine continued
Diet: N.p.o. pending OR
DVT prophylaxis: SCD
CODE STATUS: Full code
Anticipated Discharge: 24 - 48 hours
Subjective/Interval History
-
Date of Service: December 28, 2024
Seen and examined at the bedside. No acute events reported overnight. AFVSS this morning
N.p.o. in preparation of the OR today. at bedside and provided updates
Complains of mild abdomen discomfort but otherwise no complaints
Objective Data
-
Labs:
Laboratory Results
12/28/24
06:45
WBC 4.3 L
Hgb 12.3
Hct 35.8 L
Plt Count 237
Sodium 142
Potassium 3.8
Chloride 107
Carbon Dioxide 22
BUN 9
Creatinine 0.9
Glucose 69 L
Calcium 9.2
Total Bilirubin 2.4 H
AST 293 H
ALT 513 H*
Alkaline Phosphatase 213 H
Vital Signs:
Vital Signs
Temp Pulse Resp BP Pulse Ox
97.8 F 69 16 133/74 95
12/28/24 13:04 12/28/24 13:04 12/28/24 13:04 12/28/24 13:04 12/28/24 13:04
I&O
12/27/24 12/28/24 12/29/24
06:59 06:59 06:59
Intake Total 1290 / 1290 1300 / 1300
Output Total 700 / 700
Balance 1290 / 1290 600 / 600
Review of Systems
-
History Source: Patient
All other systems: Reviewed and negative
Physical Exam
-
General: Well Developed, No Apparent Distress and Obese
HEENT: Normocephalic, Atraumatic, Moist Mucous Membranes and Anicteric
Respiratory: Clear to Auscultation and Non Labored Respirations
Cardiac: Regular Rhythm and S1/S2; Negative Murmur, Rub or Gallop
GI: Soft, Nondistended, Normal Bowel Sounds and Tender
Musculoskeletal: No Clubbing, No Cyanosis and No Edema
Skin: Warm and Dry; Negative Rash
Neuro: AO x 3 and Nonfocal/Grossly Intact
Psych: Calm
Data Reviewed
-
Labs: Labs Reviewed by me, Discussed with Patient and Discussed with Family
--- NOTE | 2024-12-28 15:06 | W.DCSUMMARY ---
Discharge Summary
Discharge Data
Date of Admission: 12/26/24
Date of Discharge: 12/28/24
Total time spent discharging patient (in min): 32
-
Pending Results: No
Hospital Course
Discharging provider: Homero Guerrero DO
Discharge disposition: Home
Primary Hospital diagnoses:
Acute calculus cholecystitis
Status post robotic cholecystectomy
Cholelithiasis
Transaminitis
Leukopenia
Secondary chronic diagnoses:
Cholelithiasis
Hypothyroidism
Iron deficiency anemia
H/O bilateral lumpectomy
Obesity
Hospital course:
49-year-old female that presented to the hospital with abdomen pain and nausea. Recent outpatient ultrasound showed cholelithiasis without signs of cholecystitis. Abdomen MRI upon arrival showed evidence of cholecystitis with 1 cm wall thickening
without evidence of choledocholithiasis. Was started on IV Zosyn empirically. Had elevated LFTs on repeat labs. Evaluated by surgery who took patient to the OR on 12/28/2024 for robotic cholecystectomy. Procedure was noted to be without
complications and patient felt well following surgery. General surgery was okay with discharge at that time without need for further antibiotics. Intraoperative cholangiogram was negative for choledocholithiasis. Recommended that patient
follow-up with PCP in 1 week from discharge. Follow-up with surgery within 2 to 3 weeks of discharge
Consultants:
General Surgery: Doug Perez MD
Important imaging findings:
Abdomen US (12/26/2024)
IMPRESSION:
1. Diffuse gallbladder wall thickening, mild gallbladder distention, and cholelithiasis. ACUTE CALCULUS CHOLECYSTITIS is a diagnostic possibility.
2. Mild intrahepatic and extrahepatic biliary dilatation.
3. Severe diffuse liver disease (probably severe diffuse hepatic steatosis).
Abdomen MRI without contrast (12/27/2024)
IMPRESSION:
1. ACUTE CALCULUS CHOLECYSTITIS.
2. Mild biliary dilatation without evidence for choledocholithiasis.
3. Mild diffuse hepatic steatosis.
4. Mild splenomegaly.
5. Moderate discogenic degenerative disease at L5/S1.
Procedural findings:
Robotic cholecystectomy (12/28/2024)
Operative Findings: Mildly inflamed gallbladder with thickened wall, mild wall edema, fibrotic posterior plane
Follow-up:
PCP in 1 to 2 weeks after discharge
General Surgery in 2 to 4 weeks after discharge
Discharge Plan
-
Patient Disposition: Home (Routine Discharge)
Discharge Diagnosis/Procedures: Robotic cholecystectomy
Acute cholecystitis
Fatty liver disease
Condition: Good
Diet: Low Fat and Low Cholesterol
Activity: As tolerated and Other activity
Additional Activity: Do not lift >10 pounds for at least 2 weeks or until cleared by surgeon
Driving Restrictions: No driving for 24 hours
Bathing Restrictions: OK to Shower
Blood Work: Follow-up with family doctor for routine lab work
Instructions: Cholecystectomy - Discharge instructions
Referrals:
Doug Perez MD [Active] - in two to four weeks
Charli Kat MD [Family Provider] -
Additional Discharge Medication Instructions: Use extra strength tylenol and ibuprofen for pain. Follow instructions on the bottle.
Can use ibuprofen 600 mg every 12 hours as needed
Can use OTC Tylenol 975 mg every 6 hours as needed
Prescriptions:
Continued
levothyroxine [Synthroid] 88 mcg Tablet
88 mcg PO DAILY
alprazolam [Xanax] 0.25 mg Tablet
0.25 mg PO BIDPRN PRN (Reason: anxiety)
ibuprofen 600 mg Tablet
600 mg PO Q6HPRN PRN (Reason: mild pain)
cholecalciferol (vitamin D3) [Vitamin D3] 25 mcg (1,000 unit) Tablet
25 mcg PO DAILY
Discharge Orders:
Discharge Patient (As Directed); Ordered 12/28/24
Ordered By: Homero Guerrero
Discharge Date and Time
Print Language: PORTUGUESE
[2024-12-28] MEDS: NSS IV (15:16)
--- NOTE | 2024-12-28 16:00 | PTCARENOTE ---
At time of discharge, Pt c/o to this Nurse about numbness to b/l arms, b/l legs, chest and right and left sides of face. Pt reports sensation and feeling to these areas, but 'felt different'. Dr Guerrero notified, and came to evaluate Pt. Pt did not
lose strength to arms and legs, no slurred speech, and no facial droop noted. CT of brain ordered and completed. Discharge was cancelled and Pt resting quietly in room at this time. Call interiano is within reach.
[2024-12-28] MEDS: SENOKOT-S 1 TABLET PO (23:14)
[2024-12-29] MEDS: ZOSYN 50 IV ×2 (01:51→08:31)
[2024-12-29] MEDS: SYNTHROID 88 MCG PO (05:37)
[2024-12-29 07:31] LABS: % Basophils 0.4 % (0-2); % Eosinophils 0.4 % (0-6); % Immature Granulocytes 0.4 % (0-0.5); % Lymphocytes 17.8 % (20.5-51.1); % Monocytes 9.2 % (1.7-9.3); % Neutrophils 71.8 % (42.2-75.2); Absolute Lymphocytes 1.3 10^3/uL (1.2-3.4); Absolute Monocytes 0.7 10^3/uL (0.1-0.6); Absolute Neutrophils 5.4 10^3/uL (1.4-6.5); Hematocrit 35.2 % (37.0-47.0); Hemoglobin 12.2 g/dL (12.0-16.0); Mean Corp Hgb Conc. 34.7 g/dL (33.0-37.0); Mean Corpuscular Hgb 28.7 pg (27.0-31.0); Mean Corpuscular Volume 82.8 fL (81.0-99.0); Nucleated Red Blood Cells % 0 %; Platelet Count 242 10^3/uL (130-400); Red Blood Cell Count 4.25 10^6/uL (4.20-5.40); White Blood Cell Count 7.5 10^3/uL (4.8-10.8)
[2024-12-29 07:45] VITALS: BP 149/78
[2024-12-29 07:55] LABS: ALT (SGPT) 367 U/L (0-35); AST (SGOT) 142 U/L (14-36); Albumin 4.1 g/dl (3.5-5.0); Alkaline Phosphatase 184 U/L (38-126); Blood Urea Nitrogen 12 mg/dl (7-17); Calcium 8.9 mg/dl (8.4-10.2); Carbon Dioxide 23 mmol/L (22-30); Chloride 105 mmol/L (98-107); Estimated Creatinine Clearance 87 ml/min; Glucose 90 mg/dl (70-99); Magnesium 1.9 mg/dl (1.6-2.3); Phosphorus 3.9 mg/dl (2.5-4.5); Potassium 4.3 mmol/L (3.5-5.1); Sodium 139 mmol/L (135-145); Total Bilirubin 1.3 mg/dl (0.2-1.3); Total Protein 6.9 g/dl (6.3-8.2); eGFR > 60.00
[2024-12-29] MEDS: MOTRIN 400 MG PO (08:30)
[2024-12-29] MEDS: MYCOSTATIN CREAM 1 APPLIC TOPICAL (10:21)
[2024-12-29 11:11] LABS: Vitamin B12 486 pg/ml (239-931)
--- NOTE | 2024-12-29 11:21 | W.PN.GS2 ---
Today's Communication / Plan
-
dispo planning as per primary team
Assessment / Plan
-
49 yo female presenting with ACC who is POD #1 FLAQUITA samaniego doing well from post op standpoint and tolerating diet
Was for discharge yesterday afternoon but developed paresthesias with pain then numbness to calves, forearms and then lower face several hours post operatively with interim resolution since that time. ?reaction to sugammadex which was give
perioperatively, will d/w anesthesia team
Head CT negative for acute findings and symptoms resolved
--Ok to continue current diet
--Ok for discharge from surgical standpoint. OP follow up planning in the coming weeks
--Analgesics prn
Subjective Data
-
Date of Service: December 29, 2024
Patient seen and examined at bedside with Dr. Perez. Denies n/v. Tolerating diet. Some abdominal bloating and incisional discomfort present but manageable. Paraesthesias which began with pain in her calves, forearms and then face, resolved in that
order with no further symptoms. Questions addressed about recent imaging.
Objective Data
-
Intake and Output
12/28/24 12/29/24 12/30/24
06:59 06:59 06:59
Intake Total 1300 / 1300 2540 / 2540
Output Total 700 / 700
Balance 600 / 600 2540 / 2540
Intake:
Oral fluids 240 / 240
IV fluids (Total) 1200 / 1200 2100 / 2100
IV piggybacks 100 / 100 200 / 200
Output:
Urine, [place] 700 / 700
Other:
Number of approximated SMALL 1
amounts of urine
Number of approximated MODERATE 3 3
amounts of urine
Vital Signs
Temp Pulse Resp BP Pulse Ox
98.6 F 58 18 149/80 99
12/29/24 07:45 12/29/24 07:45 12/29/24 07:45 12/28/24 23:10 12/29/24 07:45
Lab Results
12/29/24 05:52
12/29/24 05:52
Calcium 8.9 mg/dl (8.4-10.2) 12/29/24 05:52
Phosphorus 3.9 mg/dl (2.5-4.5) 12/29/24 05:52
Magnesium 1.9 mg/dl (1.6-2.3) 12/29/24 05:52
Total Bilirubin 1.3 mg/dl (0.2-1.3) D 12/29/24 05:52
Direct Bilirubin 1.2 mg/dl (0.0-0.4) H 12/26/24 14:59
AST 142 U/L (14-36) H 12/29/24 05:52
ALT 367 U/L (0-35) H 12/29/24 05:52
Alkaline Phosphatase 184 U/L (38-126) H 12/29/24 05:52
Total Protein 6.9 g/dl (6.3-8.2) 12/29/24 05:52
Albumin 4.1 g/dl (3.5-5.0) 12/29/24 05:52
Physical Exam
-
NAD
ABD soft, nd, incisional tenderness (expected), sheet tailer
Incisions with ecchymosis, no erythema. Intact glue
Normal sensation to face, ue, le with normal movement/strength
[2024-12-29 12:28] LABS: Folate 14.3 ng/ml (2.76-20)
--- NOTE | 2024-12-29 12:49 | W.PN.HOSP.TC ---
Today's Communication/Plan
-
Discharge
Assessment / Plan
Assessment / Plan
#Acute Cholecystitis
#Choledocholithiasis (?)
-Mild intra and extrahepatic biliary dilation seen on US
-patient admitted to medicine with GS consulting
-MRI abdomen showed acute calculus cholecystitis, mild biliary dilation without choledocholithiasis, diffuse hepatic steatosis
-Did have elevation to transaminases and bilirubin concerning for choledocholithiasis
-Started on IV Zosyn empirically with plan for OR on 12/28, plan for IOC
-Continue with antiemetics and analgesics, trend LFTs and CBC
-Follow-up intraoperative cholangiogram and consider GI conult
#Hypothyroidism
-Levothyroxine continued
#Transient nonterritorial paresthesias
-Had some numbness and cramping in her legs, arms, parts of her face and neck after OR on 12/28
-CT head was negative, spoke with surgery and anesthesia, no obvious etiology
-Resolved without intervention, suspect some local neuronal membrane phenomenon
-Encourage close follow-up with PCP
DVT prophylaxis: SCD
CODE STATUS: Full code
Anticipated Discharge: Today
Subjective/Interval History
-
Date of Service: December 29, 2024
Seen and examined at the bedside. No acute events reported overnight. AFVSS this morning
Overnight she states her numbness resolved. No recurrence or other new symptoms as of this morning. States she would like to go home
Lab studies this morning unremarkable
Objective Data
-
Labs:
Laboratory Results
12/29/24
05:52
WBC 7.5
Hgb 12.2
Hct 35.2 L
Plt Count 242
Sodium 139
Potassium 4.3
Chloride 105
Carbon Dioxide 23
BUN 12
Creatinine 0.9
Glucose 90
Calcium 8.9
Total Bilirubin 1.3 D
AST 142 H
ALT 367 H
Alkaline Phosphatase 184 H
Vital Signs:
Vital Signs
Temp Pulse Resp BP Pulse Ox
98.6 F 58 18 149/80 99
12/29/24 07:45 12/29/24 07:45 12/29/24 07:45 12/28/24 23:10 12/29/24 07:45
I&O
12/28/24 12/29/24 12/30/24
06:59 06:59 06:59
Intake Total 1300 / 1300 2540 / 2540
Output Total 700 / 700
Balance 600 / 600 2540 / 2540
Review of Systems
-
History Source: Patient
All other systems: Reviewed and negative
Physical Exam
-
General: Well Developed, Well Nourished, No Apparent Distress and Comfortable
HEENT: Normocephalic, Atraumatic, Moist Mucous Membranes and Anicteric
Respiratory: Clear to Auscultation and Non Labored Respirations
Cardiac: Regular Rhythm and S1/S2; Negative Murmur, Rub or Gallop
GI: Soft, Nontender, Nondistended and Normal Bowel Sounds
Musculoskeletal: No Clubbing, No Cyanosis, No Edema and Normal Gait & Station
Skin: Warm, Dry and Normal Turgor; Negative Rash
Neuro: AO x 3 and Nonfocal/Grossly Intact; Negative Tremors
Psych: Calm
Data Reviewed
-
Labs: Labs Reviewed by me and Discussed with Patient
[2024-12-29 13:52] VITALS: BP 151/79
--- NOTE | 2024-12-29 14:27 | W.DCSUMMARY ---
Discharge Summary
Discharge Data
Date of Admission: 12/26/24
Date of Discharge: 12/29/24
Total time spent discharging patient (in min): 32
-
Pending Results: No
Hospital Course
Discharging provider: Homero Guerrero DO
Discharge disposition: Home
Primary Hospital diagnoses:
Acute calculus cholecystitis
Status post robotic cholecystectomy
Cholelithiasis
Transaminitis
Leukopenia
Postoperative paresthesia (transient, likely reaction to anesthesia)
Secondary chronic diagnoses:
Cholelithiasis
Hypothyroidism
Iron deficiency anemia
H/O bilateral lumpectomy
Obesity
Hospital course:
49-year-old female that presented to the hospital with abdomen pain and nausea. Recent outpatient ultrasound showed cholelithiasis without signs of cholecystitis. Abdomen MRI upon arrival showed evidence of cholecystitis with 1 cm wall thickening
without evidence of choledocholithiasis. Was started on IV Zosyn empirically. Had elevated LFTs on repeat labs. Evaluated by surgery who took patient to the OR on 12/28/2024 for robotic cholecystectomy. Procedure was noted to be without
complications and patient felt well following surgery. General surgery was okay with discharge at that time without need for further antibiotics. Intraoperative cholangiogram was negative for choledocholithiasis. Recommended that patient
follow-up with PCP in 1 week from discharge. Follow-up with surgery within 2 to 3 weeks of discharge
She was held in extra day following the OR as she developed paresthesias and cramping discomfort in her legs, upper extremities, and portions of her face. Was examined neurologically without any focal deficits. Symptoms were transient and quickly
resolved that evening. CT head was unremarkable. Was discharged the following day on 12/29
Consultants:
General Surgery: Doug Perez MD
Important imaging findings:
Abdomen US (12/26/2024)
IMPRESSION:
1. Diffuse gallbladder wall thickening, mild gallbladder distention, and cholelithiasis. ACUTE CALCULUS CHOLECYSTITIS is a diagnostic possibility.
2. Mild intrahepatic and extrahepatic biliary dilatation.
3. Severe diffuse liver disease (probably severe diffuse hepatic steatosis).
Abdomen MRI without contrast (12/27/2024)
IMPRESSION:
1. ACUTE CALCULUS CHOLECYSTITIS.
2. Mild biliary dilatation without evidence for choledocholithiasis.
3. Mild diffuse hepatic steatosis.
4. Mild splenomegaly.
5. Moderate discogenic degenerative disease at L5/S1.
Procedural findings:
Robotic cholecystectomy (12/28/2024)
Operative Findings: Mildly inflamed gallbladder with thickened wall, mild wall edema, fibrotic posterior plane
Follow-up:
PCP in 1 to 2 weeks after discharge
General Surgery in 2 to 4 weeks after discharge
Discharge Plan
-
Patient Disposition: Home (Routine Discharge)
Discharge Diagnosis/Procedures: Robotic cholecystectomy
Acute cholecystitis
Fatty liver disease
Postanesthesia numbness
Condition: Good
Diet: Low Fat and Low Cholesterol
Activity: As tolerated and Other activity
Additional Activity: Do not lift >15 pounds for at least 2 weeks or until cleared by surgeon
Driving Restrictions: No driving for 24 hours
Bathing Restrictions: OK to Shower
Blood Work: Follow-up with family doctor for routine lab work
Wound Care: Allow the glue to flake off your incisions on its own over the next 2-3 weeks. Bruising can be expected at incision sites.
Instructions: Cholecystectomy - Discharge instructions
Referrals:
Doug Perez MD [Active] - in two to four weeks
Charli Kat MD [Family Provider] -
Additional Discharge Medication Instructions: Use extra strength tylenol and ibuprofen for pain. Follow instructions on the bottle.
Can use ibuprofen 600 mg every 12 hours as needed
Can use OTC Tylenol 975 mg every 6 hours as needed
Prescriptions:
New
nystatin 100,000 unit/gram Cream
1 applic topical BID 7 Days Qty: 15 0RF
Continued
levothyroxine [Synthroid] 88 mcg Tablet
88 mcg PO DAILY
alprazolam [Xanax] 0.25 mg Tablet
0.25 mg PO BIDPRN PRN (Reason: anxiety)
ibuprofen 600 mg Tablet
600 mg PO Q6HPRN PRN (Reason: mild pain)
cholecalciferol (vitamin D3) [Vitamin D3] 25 mcg (1,000 unit) Tablet
25 mcg PO DAILY
Discharge Orders:
Discharge Patient (As Directed); Ordered 12/29/24
Ordered By: Homero Guerrero
Discharge Date and Time
Discharge Date/Time: 12/29/24 14:17
Print Language: PRYDEINIG
== END 2024-12-29 14:17 | disposition home or self-care (01) | DRG 418 ==
LOC: 2 SOUTH 21:18
PROVIDERS: Emergency Medicine; Student in an Organized Health Care Education/Training Program; Surgery; ADMITTING PHYSICIAN Hospitalist; ATTENDING PHYSICIAN Internal Medicine; CONSULT PHYSICIAN Surgery; EMERGENCY PHYSICIAN Emergency Medicine; FAMILY PHYSICIAN Family Medicine
PROC: 0FT44ZZ Resection of Gallbladder, Percutaneous Endoscopic Approach (ICD-10-PCS; 2024-12-28)
PROC: 8E0W4CZ Robotic Assisted Procedure of Trunk Region, Percutaneous Endoscopic Approach (ICD-10-PCS; 2024-12-28)
DX: K80.62 Calculus of gallbladder and bile duct with acute cholecystitis without obstruction (principal); G97.82 Other postprocedural complications and disorders of nervous system; K76.0 Fatty (change of) liver, not elsewhere classified; E03.9 Hypothyroidism, unspecified; Z79.890 Hormone replacement therapy; E66.9 Obesity, unspecified; Z68.34 Body mass index [BMI] 34.0-34.9, adult; F41.9 Anxiety disorder, unspecified; K82.8 Other specified diseases of gallbladder; Z90.49 Acquired absence of other specified parts of digestive tract
CPT/HCPCS: 88304; 70450; 74183; 76705; 80053; 81003; 81015; 82248; 82607; 82746; 83690; 83735; 84100; 85025; 96361; 96374; 96375; 99285; A9575

== ENCOUNTER 2025-01-03 02:31 | Inpatient (IN) | payer OTHER, SELFPAY ==
[2025-01-02 18:11] VITALS: BP 158/87
[2025-01-02 18:44] LABS: % Basophils 1.5 % (0-2); % Eosinophils 11.6 % (0-6); % Immature Granulocytes 0.4 % (0-0.5); % Lymphocytes 30.4 % (20.5-51.1); % Monocytes 8.3 % (1.7-9.3); % Neutrophils 47.8 % (42.2-75.2); Absolute Basophils 0.1 10^3/uL (0-0.2); Absolute Eosinophils 0.6 10^3/uL (0-0.7); Absolute Lymphocytes 1.7 10^3/uL (1.2-3.4); Absolute Monocytes 0.5 10^3/uL (0.1-0.6); Absolute Neutrophils 2.6 10^3/uL (1.4-6.5); Hematocrit 37.7 % (37.0-47.0); Hemoglobin 13.2 g/dL (12.0-16.0); Mean Corpuscular Hgb 28.6 pg (27.0-31.0); Mean Corpuscular Volume 81.8 fL (81.0-99.0); Mean Platelet Volume 10.2 fL (7.4-10.4); Nucleated Red Blood Cells % 0 %; Platelet Count 290 10^3/uL (130-400); Red Blood Cell Count 4.61 10^6/uL (4.20-5.40); Red Cell Dist. Width 13.1 % (11.5-14.5); White Blood Cell Count 5.4 10^3/uL (4.8-10.8)
[2025-01-02 18:50] LABS: APTT 24.6 Sec (23.4-35.0); INR 0.89; PT 12.3 Sec (11.4-14.6)
[2025-01-02 19:01] LABS: Albumin 4.1 g/dl (3.5-5.0); Alkaline Phosphatase 359 U/L (38-126); Blood Urea Nitrogen 10 mg/dl (7-17); Calcium 9.8 mg/dl (8.4-10.2); Carbon Dioxide 26 mmol/L (22-30); Chloride 110 mmol/L (98-107); Glucose 130 mg/dl (70-99); Lipase 121 U/L (23-300); Potassium 4.1 mmol/L (3.5-5.1); Sodium 142 mmol/L (135-145); Total Bilirubin 5.9 mg/dl (0.2-1.3); Total Protein 7.3 g/dl (6.3-8.2); eGFR > 60.00
[2025-01-02 19:23] LABS: ALT (SGPT) 1009 U/L (0-35); AST (SGOT) 821 U/L (14-36)
[2025-01-02] MEDS: MORPHINE SULFATE 4 MG IV (20:43)
[2025-01-02] MEDS: BENADRYL 25 MG IV (20:43)
[2025-01-02 20:46] VITALS: BP 157/64
[2025-01-02] MEDS: OMNIPAQUE 50 ML PO (21:06)
[2025-01-02 22:36] VITALS: BP 145/71
--- NOTE | 2025-01-02 22:38 | ED.GENMED ---
History of Present Illness
General
Chief Complaint: Post Operative Problem(s)
Time Seen by Provider: 01/02/25 20:12
History of Present Illness
History of Present Illness:
49-year-old female presenting to the ER for worsening abdominal pain with yellowing of the skin and nausea and vomiting. Patient is status post laparoscopic cholecystectomy for acute calculus cholecystitis on 12/28. Patient discharged on 12/29.
Reportedly no complications from the surgery. Patient reports she had an MRCP that did not show any evidence of choledocholithiasis, followed up with her doctor, was told that her liver enzymes are worsening. She notes diffuse itching of the skin.
Denies fever, chest pain, difficulty breathing. Denies additional acute medical complaints
Past History
Past History
ED Past Medical History: Hypothyroidism
Social History
Tobacco: Non-smoker
Personal:
Living: with family
Phy Exam
Physical Exam
Physical Exam:
General: Well-appearing, no clinical signs of dehydration, nontoxic and in no acute distress
HEENT: protecting airway, scleral icterus
Neck: appears supple
CV: Normal heart rate
Resp: No accessory muscle use, no increased work of breathing
Abd: Soft and non-distended, tenderness to the epigastric and right upper quadrant without rebound or guarding
Extremities: No deformities, no swelling
Neuro: alert, no focal neurologic deficit
: deferred
Rectal: deferred
Psych: Normal affect
Skin: Jaundice
Course
Orders/Labs/Results
Orders:
Orders
01/02/25 18:16
ECG [Electrocardiogram (*1)] Urgent
Reason for Study: Abdominal Pain
01/02/25 18:17
EKG- Treatment ONCE
01/02/25 18:36
Complete Blood Count/With Diff Urgent
Comprehensive Metabolic Panel Urgent
Lipase Urgent
PT/INR [Prothrombin Time] Urgent
PTT Urgent
01/02/25 20:36
Diphenhydramine [Benadryl] 25 mg IV NOW STA
Morphine Sulfate 4 mg IV NOW STA
01/02/25 20:48
Iohexol [Omnipaque] See Protocol PO NOW STA
01/02/25 20:49
CT Abd/pel W Iv And Oral Contr Urgent
Comment:
Reason For Exam: upper abd pain, s/o cholecystectomy /, LFTs high
01/02/25 21:09
Iohexol [Omnipaque] 50 ml .ROUTE .STK-MED ONE
Abnormal Lab Results
01/02/25
18:36
Eosinophils % 11.6 H %
(0-6)
Chloride 110 H mmol/L
(98-107)
Glucose 130 H mg/dl
(70-99)
Total Bilirubin 5.9 H mg/dl
(0.2-1.3)
AST 821 H* U/L
(14-36)
ALT 1009 H* U/L
(0-35)
Alkaline Phosphatase 359 H U/L
(38-126)
01/02/25 18:36
01/02/25 18:36
Vital Signs
Initial and Last Documented VS:
Initial Vital Signs
Temp Pulse Resp BP Pulse Ox
97.6 F 66 20 158/87 96
01/02/25 18:11 01/02/25 18:11 01/02/25 18:11 01/02/25 18:11 01/02/25 18:11
Last Documented Vital Signs
Temp Pulse Resp BP Pulse Ox
97.6 F 65 12 145/71 97
01/02/25 18:11 01/02/25 22:36 01/02/25 22:36 01/02/25 22:36 01/02/25 22:36
MDM/Problems Addressed
MDM/Problems Addressed:
49-year-old female presenting to the emergency department for worsening abdominal pain status post cholecystectomy. Vital signs on arrival are significant for mild hypertension.
On exam patient is resting comfortably, no acute distress. Patient does appear jaundiced. Review of labs show worsening liver function and bilirubin from 5/8. Generalized tenderness to the right upper abdomen and epigastric area. Lipase is
normal without concern for pancreatitis. On review of EMR, patient did have MRCP which did not show any evidence of choledocholithiasis and had intraoperative cholangiogram, again without evidence of choledocholithiasis. Concern for postsurgical
complication. Will discuss with surgery on-call regarding imaging with likely plan for admission.
20:50 - Did discuss with surgery on-call, recommending CT with and without IV and oral contrast
*Critical Care Note
Total Time (30-74mins, 75-104mins- exclusive of procedures): Not Applicable
ED Attending Note
-
Portions of this chart may have been created with voice recognition software.� Occasional wrong word or��sound alike� substitutions may have occurred due to the inherent limitations of voice recognition software.
Discharge Plan
Departure
Prescriptions:
No Action
levothyroxine [Synthroid] 88 mcg Tablet
88 mcg PO DAILY
alprazolam [Xanax] 0.25 mg Tablet
0.25 mg PO BIDPRN PRN (Reason: anxiety)
ibuprofen 600 mg Tablet
600 mg PO Q6HPRN PRN (Reason: mild pain)
cholecalciferol (vitamin D3) [Vitamin D3] 25 mcg (1,000 unit) Tablet
25 mcg PO DAILY
nystatin 100,000 unit/gram Cream
1 applic topical BID 7 Days Qty: 15 0RF
Referrals:
Charli Kat MD [Family Provider] -
Interventions
Interventions:
*Risk Screen - Suicide Last Done: 01/02/25 18:11
*General Assessment Last Done: 01/02/25 18:11
*Neglect/Abuse Screening Last Done: 01/02/25 20:47
*ED- Fall Risk Assessment Last Done: 01/02/25 20:47
*ED COVID-19 Vaccine History Last Done: 01/02/25 20:47
ED-Skin Assessment Last Done: 01/02/25 20:47
Discharge Date and Time
Print Language: CZECH
[2025-01-02] MEDS: ZOSYN 100 IV (23:03)
[2025-01-02 23:16] VITALS: BP 133/53
--- NOTE | 2025-01-03 01:48 | HPS.HSE ---
Family Physician
-
Family Physician: Charli Kat MD
Chief Complaint
-
Abdominal pain
History of Present Illness
This is a 49-year-old was past medical history significant for hypothyroid and anxiety presenting to the emergency department with abdominal pain and itching after being discharged status post laparoscopic cholecystectomy about 5 days ago.
Patient reported that she continued to have epigastric pain upon arrival at home since discharge. She reports of belching and some nausea. She reports that the pain is nonradiating. Not associate with any fevers or chills. She is not having any
diarrhea. About 2 days ago she started having pruritus which prompted her to come to the emergency department. She denies any changes in the color of her stool. She is unable to tell me there is any changes color of her urine.
In the emergency department patient was afebrile, blood pressure was 133/50 with a pulse rate of 58 and satting 98% on room air.
A CBC was completely normal. Electrolytes BUN/creatinine with A normal. There was elevation of total bilirubin of 5.9, AST to 800 ALT to 1000 and alk phos of 359. Lipase was normal.
CT of the abdomen pelvis shows mild gastric wall thickening, no bowel obstruction status post cholecystectomy without evidence of complication.
Medical History
Past Medical History
Past Medical History: Reports Hypothyroidism
Past Surgical History: Reports Cholecystectomy and Other
Additional Past Surgical History:
Appendectomy
Bilateral breast lumpectomy
Social History
Tobacco: Non-smoker
Alcohol: None
Drug: None
Personal:
Living: With Family
Family History
Family History: Not pertinent
Allergies / Home Medications
Allergies reflects when Allergies were last updated in [email or web address].
Home Medications with original date entered in [email or web address]
Allergy/Medication List:
Allergies
Allergy/AdvReac Type Severity Reaction Status Date / Time
No Known Allergies Allergy Verified 12/26/24 14:41
Home Medications
cholecalciferol (vitamin D3) 10 mcg (400 unit) tablet (Vitamin D3) 5,000 units PO DAILY 06/14/20
ferrous sulfate 325 mg (65 mg iron) tablet (Iron (ferrous sulfate)) 325 mg PO .4 DAYS A MONTH 06/14/20
levothyroxine 100 mcg tablet 100 mcg PO DAILY 06/14/20
alprazolam 0.25 mg tablet (Xanax) 0.25 mg PO TID PRN anxiety #12 tabs 08/08/23
levothyroxine 75 mcg tablet (Synthroid) 75 mcg PO DAILY #30 tabs 08/08/23
alprazolam 0.25 mg tablet (Xanax) 0.25 mg PO HS PRN anxiety #5 tabs 08/31/23
levothyroxine 50 mcg capsule 50 mcg PO DAILY #30 caps 08/31/23
ibuprofen 600 mg tablet 600 mg PO Q8H PRN Pain #10 tabs 12/16/24
ondansetron 4 mg disintegrating tablet 4 mg PO Q6H PRN nausea and vomiting #7 tabs 12/16/24
Review of Systems
-
History Source: Patient
Constitutional: Reports No Symptoms
EENT: Reports No Symptoms
Respiratory: Reports No Symptoms
Cardiac: Reports No Symptoms
Abdomen/GI: Reports Abdominal Pain
: Reports No Symptoms
Musculoskeletal: Reports No Symptoms
Skin: Reports No Symptoms
Neurological: Reports No Symptoms
Endocrine: Reports No Symptoms
Hematologic/Lymphatic: Reports No Symptoms
Psych: Reports No Symptoms
Physical Exam
Vital Signs
Vital Signs
Temp Pulse Resp BP Pulse Ox
97.6 F 58 16 133/53 98
01/02/25 18:11 01/02/25 23:16 01/02/25 23:16 01/02/25 23:16 01/02/25 23:16
Physical Exam
General: Well Developed, Well Nourished and No Apparent Distress
HEENT: NormoCephalic, Moist mucous membranes and Atraumatic
Respiratory: Clear
Cardiac: S1/S2 and Regular Rhythm; No Murmur or Rub
GI: Soft, Non Tender, Non Distended and Normal Bowel Sounds; No Organomegaly
Rectal: Deferred by Provider
Musculoskeletal: No Clubbing, No Cyanosis and No Edema
Skin: No Rash
Neuro: AO x 3 and Nonfocal/grossly intact
Psych: Calm
Laboratory Results
-
01/02/25 18:36
01/02/25 18:36
Laboratory Results
PT 12.3 Sec (11.4-14.6) 01/02/25 18:36
INR 0.89 01/02/25 18:36
APTT 24.6 Sec (23.4-35.0) 01/02/25 18:36
Total Bilirubin 5.9 mg/dl (0.2-1.3) H 01/02/25 18:36
AST 821 U/L (14-36) H* 01/02/25 18:36
ALT 1009 U/L (0-35) H* 01/02/25 18:36
Alkaline Phosphatase 359 U/L (38-126) H 01/02/25 18:36
Lipase 121 U/L (23-300) 01/02/25 18:36
Data Reviewed
-
CT Scan: Report Reviewed by me
MRI: Report Reviewed by me
Lab Data: Labs Reviewed by me
Old Records: Reviewed
Impression/Plan
-
IMPRESSION:
49-year-old postop day #5 status post laparoscopic cholecystectomy for cholelithiasis and acute cholecystitis seen on MRI abdomen. Preprocedure the MRI did not show any biliary ductal dilatation and no choledocholithiasis. Operative assessment
also did not confirm any biliary obstruction. Operation was described successful and uncomplicated. Patient went home and then started having pain again in the epigastric region associated with pruritus in the last 2 days. She has had no fevers
or chills. Evaluation here shows fairly benign abdomen, no leukocytosis and no fevers. However she has a rising bilirubin to 6, elevated AST and ALT to 800 and 1,000 respectively. Lipase is normal. CT of the abdomen pelvis shows no acute
intra-abdominal process. Normal status post cholecystectomy. Denies any tylenol use. PRN ibuprofen once to twice daily.
PLAN:
1. Abdominal pain -biliary obstruction suspected without acute cholangitis. Surgery evaluated the CT scan, no evidence for surgical complication and patient was referred to the medicine service.
- admit to med/surg
- s/p zosyn in ED, will hold further abx for now
- mrcp
- npo for now, IV fluids
- antiemetics, anti histamine and pain control
- GI consultation
DVT PPX - lovenox sq
Code status - full code
[2025-01-03] MEDS: D5/0.45%NACL 1000 IV ×2 (02:52→16:27)
[2025-01-03 06:30] VITALS: BP 137/55
[2025-01-03 07:45] VITALS: BP 166/73
[2025-01-03] MEDS: XANAX 0.5 MG PO (08:01)
--- NOTE | 2025-01-03 08:46 | CON.GS ---
Addendum entered and electronically signed by Varinder Brown MD 01/03/25 10:55:
Patient seen and examined.
Patient is a 49 yo F with a PMH of obesity, anxiety, hypothyroidism, s/p bilateral lumpectomy, s/p appendectomy, and recently s/p robotic cholecystectomy on 12/28/[address] Perez. Ms. Arreguin presents with epigastric abdominal pain and jaundice.
She states that her symptoms began approximately 2 days ago. She reports severe intermittent epigastric abdominal pain with radiation to the back. No fevers or chills. No nausea or vomiting. She denies any pale stools or tea colored urine. She
does note yellowing of her eyes and skin.
Gen: NAD
Abd: soft, mild tenderness in epigastrium, ND, non-peritoneal, incisions c/d/i - no erythema, ecchymosis or drainage
Labs, CT scan, and MRI were reviewed
Patient is a 49 yo F POD#6 s/p robotic cholecystectomy p/w epigastric abdominal pain, jaundice, elevated bilirubin, and LFTs
Most likely retained stone or debris despite negative MRIs given her laboratory abnormalities and slightly dilated CBD. Possible that this was present preoperatively given her mild LFT elevations at that time. Differential also includes a bile
leak, though much less likely given her CT scan and MRI without any significant fluid within the gallbladder fossa and the waxing and waning symptoms. No role or indication for further surgical intervention at this time. GI consult noted,
consideration of EUS/ERCP. All questions answered.
-- No plans for repeat surgical intervention
-- GI consult, consideration of EUS/ERCP
-- NPO, IVF
-- Abx: Zosyn for cholangitis coverage
Original Note:
Consultation
-
Performing Provider: Varinder Minaya
Reason for Consultation: Elevated bilirubin
Medical History
-
Chief Complaint: Abdominal pain with pruritis
History of Present Illness:
Patient is a 49 year old female with past medical history significant for hypothyroidism and anxiety, status post laparoscopic cholecystectomy day 6. She was discharged from [facility] on 12/29/24. She presents to the emergency department with
epigastric, intermittent, nonradiating abdominal pain and itching that started 2 days ago. Associated with chills. No fever, vomiting, diarrhea, changes in the color of her stools.
On admission, her vitals are stable and she is afebrile.
On admission, abnormal labs include total elevated bilirubin of 5.9, AST 800, [id number] and Alk phos of 359. Normal lipase.
CT scan of abdomen pelvis shows mild gastric wall thickening, no bowel obstruction staus post cholecystectomy without evidence of complication.
Past Medical History
Past Medical History: Other (See HPI)
Past Surgical History: Other (Laparoscopic cholecystectomy, Appendectomy, Bilateral breast lumpectomy)
Social History
Tobacco: Non-Smoker
Alcohol: None
Drug: None
Personal:
Living: With Family
Family History
Family History: Reviewed & Not Pertinent
Allergies / Home Medications
Allergy/AdvReac Type Severity Reaction Status Date / Time
No Known Allergies Allergy Verified 12/26/24 14:41
�Medication �Instructions �Recorded �Confirmed �Type
alprazolam 0.25 mg tablet (Xanax) 0.25 mg PO BIDPRN PRN anxiety 12/26/24 12/26/24 History
cholecalciferol (vitamin D3) 25 25 mcg PO DAILY 12/26/24 12/26/24 History
mcg (1,000 unit) tablet (Vitamin
D3)
ibuprofen 600 mg tablet 600 mg PO Q6HPRN PRN mild pain 12/26/24 12/26/24 History
levothyroxine 88 mcg tablet 88 mcg PO DAILY 12/26/24 12/26/24 History
(Synthroid)
nystatin 100,000 unit/gram topical 1 applic topical BID 1 week #15 12/29/24 Rx
cream grams
Review of Systems
-
History Source: Patient
All other systems: Negative unless noted
Abdomen/GI: Abdominal Pain (in the epigastric region)
A 10 point review of systems was completed, and was negative except as per HPI.
Physical Exam
Vital Signs
Temp Pulse Resp BP Pulse Ox
97.5 F 70 16 166/73 100
01/03/25 07:45 01/03/25 07:45 01/03/25 07:45 01/03/25 07:45 01/03/25 07:45
01/02/25 01/03/25 01/04/25
06:59 06:59 06:59
Actual Weight 91 kg
Lab Results
01/02/25 18:36
01/02/25 18:36
WBC 5.4 10^3/uL (4.8-10.8) 01/02/25 18:36
Hgb 13.2 g/dL (12.0-16.0) 01/02/25 18:36
Hct 37.7 % (37.0-47.0) 01/02/25 18:36
Plt Count 290 10^3/uL (130-400) 01/02/25 18:36
Abs Immat Gran (auto) 0.0 10^3/uL (0-0.05) 01/02/25 18:36
Neutrophils % 47.8 % (42.2-75.2) 01/02/25 18:36
Physical Exam
General: Well Developed
GI: Soft, Non Distended, Normal Bowel Sounds and Tender (mild tenderness in the epigastric region)
Data Reviewed
-
CT Scan: Report Reviewed by me and Discussed with Physician
Labs: Labs Reviewed by me and Discussed with Physician
Assessment / Plan
-
Suspected biliary obstruction with stone/debris vs biliary mass vs biliary leak vs stricture
S/P day #6 laparoscopic cholecystectomy
Elevated transaminases
Elevated total bilirubin
Mixed Hepatocellular- cholestatic pattern:
- CT scan abdomen/pelvis on 01/02/25 reveals no evidence of surgical complication.
- Continue patient on dextrose w/ sodium chloride IV fluids as patient is NPO
- Continue patient on NPO in anticipation of EUS
- Continue Motrin/ ibuprofen for pain control as needed
- Continue Zofran nausea as needed
- GI is following
- MRCP done today showed no evidence of choledocholithiasis.
- GI plan is to repeat and monitor LFT's, if there is increase in LFT's or pain then EUS will be considered
- No surgical treatment is planned at this time. Agree with plan for EUS, and if positive for any strictures, mass, stones or cyst, then proceed to ERCP.
Anxiety:
- Continue Xanax as needed
Hypothyroidism:
- No constipation, dry skin, fatigue, weight gain, weakness.
- Continue Synthroid 88 mcg
DVT ppx- lovenox
Full code
--- NOTE | 2025-01-03 09:22 | CON.GI ---
Addendum entered and electronically signed by Johnathon Jimenez MD 01/03/25 12:51:
I saw and evaluated the patient. I reviewed the resident�s note and agree with findings and plan as documented in the resident�s note.
49yo female recently d/c'd following lap danette 5 days ago. LFTs peaked at [place] 4.3 and AST 583, ALT 618 during that admission. MRI showed gallstones and GBWT, mild biliary dilation w/o CBD stones. Had lap danette 12/28/24. No IOC. At d/c TB down to
1.3 and AST 142, ALT 367 on 12/29. After d/c she had similar pain that brought her in- epigastric pain after eating, then throughout day. On admission TB 5.9, AST 821, ALT 1009. MRCP done shows no CBD stones, but mild IHDD/EHDD slightly increased.
Rpt TB 5.3, AST 561, ALT 947. Pain controlled with pain meds
REC:
OK for clears for now
Repeat LFTs in am
If not improving, would set up EUS to r/o CBD stone despite negative MRI given the clinical picture
If better, then perhaps passed a CBD stone, then can advance diet
Original Note:
Consultation
-
Date/Time Consultation Requested: 01/03/2025
Date/Time Consultation Performed: 01/03/2025
Requesting Provider: Dr. Johnathon Jimenez
Performing Provider: Dr Afshan Khan
Reason for Consultation: abd pain post cholecystectomy
Medical History
Chief Complaint / HPI
History of Present Illness:
49-year-old female with history of hypothyroidism, s/p post laparoscopic cholecystectomy about 5 days ago presented with epigastric pain and pruritus. Patient states that the pain is similar as prior to surgery. She states that her pain has
remained constant and it is more in the epigastrium, radiating to her mid back, now 6/10 intensity ( was 9/10 at home). Pain is worse with food. She reports of bloating and chills, denies N/V. About 2 days ago she started having pruritus which
prompted her to the ED. She denies any change in stool or urine color. She did take some ibuprofen to help with the pain.
Workup in the ED reveals elevation of total bilirubin of 5.9, significant elevation of AST 821, ALT 1009, alk phos 359. Afebrile, no leukocytosis. Hemodynamically stable. CT of the abdomen pelvis shows mild gastric wall thickening, no bowel
obstruction status post cholecystectomy without evidence of complication. GI is consulted to evaluate further.
Past Medical History
Past Medical History: Hypothyroidism
Past Surgical History: Appendectomy, Cholecystectomy (Recent 12/28/2024) and Other (Bilateral breast lumpectomy)
Social History
Tobacco: Non-Smoker
Alcohol: None
Drug: None
Personal:
Living: With Family
Family History
Family History: Reviewed & Not Pertinent
Allergies / Home Medications
Allergy/AdvReac Type Severity Reaction Status Date / Time
No Known Allergies Allergy Verified 12/26/24 14:41
�Medication �Instructions �Recorded
alprazolam 0.25 mg tablet (Xanax) 0.25 mg PO BIDPRN PRN anxiety 12/26/24
cholecalciferol (vitamin D3) 25 25 mcg PO DAILY 12/26/24
mcg (1,000 unit) tablet (Vitamin
D3)
ibuprofen 600 mg tablet 600 mg PO Q6HPRN PRN mild pain 12/26/24
levothyroxine 88 mcg tablet 88 mcg PO DAILY 12/26/24
(Synthroid)
nystatin 100,000 unit/gram topical 1 applic topical BID 1 week #15 12/29/24
cream grams
Review of Systems
-
All other systems: A 12 pt ROS was Negative except as stated above in HPI
Abdomen/GI: Reports Abdominal Pain
Vital Signs
Temp Pulse Resp BP Pulse Ox
97.5 F 70 16 166/73 100
01/03/25 07:45 01/03/25 07:45 01/03/25 07:45 01/03/25 07:45 01/03/25 07:45
Physical Exam
Exam
General: No Apparent Distress and Comfortable
HEENT: Moist Mucous Membranes and Other (Icteric)
Respiratory: Clear
Cardiac: S1/S2 and Regular Rhythm
GI: Soft, Non Tender and Non Distended
Musculoskeletal: No Edema
Neuro: AO x 3
Psych: Other (Anxious)
Results
WBC 5.4 10^3/uL (4.8-10.8) 01/02/25 18:36
Hgb 13.2 g/dL (12.0-16.0) 01/02/25 18:36
Hct 37.7 % (37.0-47.0) 01/02/25 18:36
MCV 81.8 fL (81.0-99.0) 01/02/25 18:36
Plt Count 290 10^3/uL (130-400) 01/02/25 18:36
Absolute Neuts (auto) 2.6 10^3/uL (1.4-6.5) 01/02/25 18:36
PT 12.3 Sec (11.4-14.6) 01/02/25 18:36
INR 0.89 01/02/25 18:36
APTT 24.6 Sec (23.4-35.0) 01/02/25 18:36
Sodium 142 mmol/L (135-145) 01/02/25 18:36
Potassium 4.1 mmol/L (3.5-5.1) 01/02/25 18:36
Chloride 110 mmol/L (98-107) H 01/02/25 18:36
Carbon Dioxide 26 mmol/L (22-30) 01/02/25 18:36
BUN 10 mg/dl (7-17) 01/02/25 18:36
Creatinine 0.9 mg/dL (0.6-1.0) 01/02/25 18:36
Calcium 9.8 mg/dl (8.4-10.2) 01/02/25 18:36
Total Bilirubin 5.9 mg/dl (0.2-1.3) H 01/02/25 18:36
AST 821 U/L (14-36) H* 01/02/25 18:36
ALT 1009 U/L (0-35) H* 01/02/25 18:36
Alkaline Phosphatase 359 U/L (38-126) H 01/02/25 18:36
Lipase 121 U/L (23-300) 01/02/25 18:36
Diagnostic Image Results:
Prior GI Procedures:
EGD:
Colonoscopy:
Assessment / Plan
-
PLAN
#Epigastric pain post lap cholecystectomy
#Acute transaminitis
#Hyperbilirubinemia
D/D- biliary obstruction, stricture, mass, biliary leak
Afebrile with no leukocytosis
CT scan of the abdomen/pelvis reveals no evidence of surgical complication
MRCP reveals no evidence of choledocholithiasis. There is mild intra hepatic and extrahepatic bile duct dilation increased slightly compared to the MRI abdomen from 12/27
Repeat LFTs today and monitor
If persistent elevation or pain can consider EUS
Questionable if the patient passed a stone
-
-
Thank you for consultation and allowing me to participate in the patient's care. Please call the space control agent GI physician during the after hours with any questions or concerns.
[2025-01-03] MEDS: MORPHINE SULFATE 2 MG IV ×2 (09:25→21:46)
[2025-01-03 10:21] LABS: % Basophils 1.5 % (0-2); % Eosinophils 11.3 % (0-6); % Immature Granulocytes 0.4 % (0-0.5); % Lymphocytes 21.1 % (20.5-51.1); % Monocytes 9.6 % (1.7-9.3); % Neutrophils 56.1 % (42.2-75.2); Absolute Basophils 0.1 10^3/uL (0-0.2); Absolute Eosinophils 0.6 10^3/uL (0-0.7); Absolute Lymphocytes 1.1 10^3/uL (1.2-3.4); Absolute Monocytes 0.5 10^3/uL (0.1-0.6); Absolute Neutrophils 2.9 10^3/uL (1.4-6.5); Hematocrit 38.2 % (37.0-47.0); Hemoglobin 13.1 g/dL (12.0-16.0); Mean Corp Hgb Conc. 34.3 g/dL (33.0-37.0); Mean Corpuscular Hgb 28.5 pg (27.0-31.0); Mean Corpuscular Volume 83.2 fL (81.0-99.0); Mean Platelet Volume 10.4 fL (7.4-10.4); Nucleated Red Blood Cells % 0 %; Platelet Count 293 10^3/uL (130-400); Red Blood Cell Count 4.59 10^6/uL (4.20-5.40); Red Cell Dist. Width 13.2 % (11.5-14.5); White Blood Cell Count 5.2 10^3/uL (4.8-10.8)
[2025-01-03 10:32] LABS: AST (SGOT) 561 U/L (14-36); Albumin 3.9 g/dl (3.5-5.0); Alkaline Phosphatase 335 U/L (38-126); Blood Urea Nitrogen 5 mg/dl (7-17); Calcium 9.6 mg/dl (8.4-10.2); Carbon Dioxide 28 mmol/L (22-30); Chloride 108 mmol/L (98-107); Glucose 136 mg/dl (70-99); Potassium 4.2 mmol/L (3.5-5.1); Sodium 142 mmol/L (135-145); Total Bilirubin 5.3 mg/dl (0.2-1.3); eGFR > 60.00
[2025-01-03 10:47] LABS: ALT (SGPT) 947 U/L (0-35)
[2025-01-03] MEDS: NSS (PRESERVATIVE FREE) 10 ML IV (11:46)
[2025-01-03] MEDS: PROTONIX IV 40 MG IV (11:47)
--- NOTE | 2025-01-03 12:45 | W.PN.HOSP.TC ---
Today's Communication/Plan
-
Clear liquid diet
IV Zosyn
LFTs in the a.m.
Assessment / Plan
Assessment / Plan
Gen-AAOx3, NAD
HEENT-NC, AT, icteric, clear oral mm
Neck-supple
CV-reg, no M, +S1/S2
Lungs-clear B/L
Abd-soft, NT, ND
Ext-no edema
Musculoskeletal-no cyanosis, clubbing
Skin-warm and dry
Neuro-grossly non-focal
Psych-calm, cooperative
Obstructive jaundice -possibly due to choledocholithiasis. However, MRCP was negative. Elevated bilirubin and transaminases noted.
GI consult appreciated. Okay for clear liquid diet. May need EUS/ERCP if LFTs do not improve.
No signs or symptoms of sepsis, but will continue empiric Zosyn for now. Discussed with Dr. Jimenez.
Recent calculus cholecystitis -underwent laparoscopic cholecystectomy 12/[address] Perez. Discharged 12/29. MRI on December 27 did not reveal choledocholithiasis.
Hypothyroidism -levothyroxine.
Obesity due to excess calories
Full code
Anticipated Discharge: > 48 hours
Subjective/Interval History
-
Date of Service: January 03, 2025
Patient seen and examined. Currently feeling better, denies abdominal pain. States itching is improving.
Objective Data
-
Labs:
Laboratory Results
01/03/25
10:12
WBC 5.2
Hgb 13.1
Hct 38.2
Plt Count 293
Sodium 142
Potassium 4.2
Chloride 108 H
Carbon Dioxide 28
BUN 5 L
Creatinine 0.8
Glucose 136 H
Calcium 9.6
Total Bilirubin 5.3 H
AST 561 H*
ALT 947 H*
Alkaline Phosphatase 335 H
Vital Signs:
Vital Signs
Temp Pulse Resp BP Pulse Ox
97.5 F 70 16 166/73 100
01/03/25 07:45 01/03/25 07:45 01/03/25 07:45 01/03/25 07:45 01/03/25 07:45
I&O
01/02/25 01/03/25 01/04/25
06:59 06:59 06:59
Intake Total 175 / 175
Balance 175 / 175
Review of Systems
-
History Source: Patient
All other systems: Reviewed and negative
[2025-01-03] MEDS: ZOSYN 50 IV ×2 (13:10→18:39)
[2025-01-03 13:15] LABS: Direct Bilirubin 3.7 mg/dl (0.0-0.4)
[2025-01-03] MEDS: BENADRYL 25 MG IV ×2 (13:26→22:24)
[2025-01-03 13:48] VITALS: BP 129/69
--- NOTE | 2025-01-03 15:54 | CM ---
CM reviewed chart
Pt admitted to [facility] from 12/26-12/29 with mike samaniego on 12/28
She resides with her spouse in a 2SH with 1STE
Denies VN/SNF hx and use of DMEs
Discharge Disposition- home no needs anticipated
[2025-01-03 17:21] VITALS: BP 151/69
[2025-01-03 23:12] VITALS: BP 142/81
[2025-01-04] MEDS: ZOSYN 50 IV ×4 (00:28→18:16)
[2025-01-04] MEDS: SYNTHROID 88 MCG PO (06:02)
[2025-01-04] MEDS: D5/0.45%NACL 1000 IV (06:02)
[2025-01-04] MEDS: NSS (PRESERVATIVE FREE) 10 ML IV (07:44)
[2025-01-04] MEDS: PROTONIX IV 40 MG IV (07:44)
[2025-01-04] MEDS: MORPHINE SULFATE 2 MG IV (07:53)
[2025-01-04 07:58] VITALS: BP 143/72
[2025-01-04 08:50] LABS: ALT (SGPT) 726 U/L (0-35); AST (SGOT) 298 U/L (14-36); Albumin 4.2 g/dl (3.5-5.0); Alkaline Phosphatase 303 U/L (38-126); Blood Urea Nitrogen 3 mg/dl (7-17); Calcium 9.5 mg/dl (8.4-10.2); Carbon Dioxide 28 mmol/L (22-30); Chloride 107 mmol/L (98-107); Glucose 124 mg/dl (70-99); Potassium 4.1 mmol/L (3.5-5.1); Sodium 142 mmol/L (135-145); Total Bilirubin 5.1 mg/dl (0.2-1.3); Total Protein 7.1 g/dl (6.3-8.2); eGFR > 60.00
--- NOTE | 2025-01-04 09:14 | W.PN.HOSP.TC ---
Today's Communication/Plan
-
Increase IV morphine dose
EUS tomorrow
Assessment / Plan
Assessment / Plan
Gen-AAOx3, NAD
HEENT-NC, AT, icteric, clear oral mm
Neck-supple
CV-reg, no M, +S1/S2
Lungs-clear B/L
Abd-soft, NT, ND
Ext-no edema
Musculoskeletal-no cyanosis, clubbing
Skin-warm and dry
Neuro-grossly non-focal
Psych-calm, cooperative
Obstructive jaundice -possibly due to choledocholithiasis. However, MRCP was negative. Elevated bilirubin and transaminases noted, mild improvement overnight. Pain persists.
Continue empiric IV Zosyn. Not septic clinically.
Await EUS, soonest will be tomorrow January 05 according to GI. Informed patient. Will increase dose of morphine.
Recent calculus cholecystitis -underwent laparoscopic cholecystectomy 12/[address] Perez. Discharged 12/29. MRI on December 27 did not reveal choledocholithiasis.
Hypothyroidism -levothyroxine.
Obesity due to excess calories
Full code
Anticipated Discharge: > 48 hours
Subjective/Interval History
-
Date of Service: January 04, 2025
Patient seen and examined, complaining of epigastric abdominal pain. 7 out of 10.
Objective Data
-
Labs:
Laboratory Results
01/04/25
06:17
Sodium 142
Potassium 4.1
Chloride 107
Carbon Dioxide 28
BUN 3 L
Creatinine 0.9
Glucose 124 H
Calcium 9.5
Total Bilirubin 5.1 H
AST 298 H
ALT 726 H*
Alkaline Phosphatase 303 H
Vital Signs:
Vital Signs
Temp Pulse Resp BP Pulse Ox
97.7 F 57 18 143/72 99
01/04/25 07:58 01/04/25 07:58 01/04/25 07:58 01/04/25 07:58 01/04/25 07:58
I&O
01/03/25 01/04/25 01/05/25
06:59 06:59 06:59
Intake Total 1415 / 1415 480 / 480
Balance 1415 / 1415 480 / 480
Review of Systems
-
History Source: Patient
All other systems: Reviewed and negative
[2025-01-04] MEDS: BENADRYL 25 MG IV ×2 (10:02→21:48)
--- NOTE | 2025-01-04 11:48 | W.PN.GI.CBS2 ---
Addendum entered and electronically signed by Johnathon Jimenez MD 01/04/25 12:29:
I saw and examined the patient.
The LEAD FIRE PROTECTION ENGINEER or PA's note was reviewed and I agree with the note.
Comment: Still having pain, worse today.
ABD soft moderate tenderness
REC:
LFTs down a little but bili still 5 and still having pain
Will plan on EGD/EUS tomorrow to rule out CBD stone despite negative MRIs, and r/o PUD
If EUS positive---> ERCP
Cont PPI
Original Note:
Today's Communication / Plan
-
Etiology of pain and rise in LFT's related to passed stone, inflammation, gastritis with recent NSAIDS vs other
MRCP with ductal dilatation but no choledocholithiasis
Afebrile with no leukocytosis but still some persistent pain
LFT's trending down
imaging unrevealing for pain source
cont PPI, limit NSAIDs -- will stop Ibuprofen PRN
If persistent elevation or pain can consider EUS with EGD as also increased NSAID use prior to admission
Assessment / Plan
-
49-year-old female with history of hypothyroidism, s/p post laparoscopic cholecystectomy about 5 days ago presented with epigastric pain and pruritus. Workup in the ED reveals elevation of total bilirubin of 5.9, significant elevation of AST 821,
ALT 1009, alk phos 359 with slow improvement after admission.
12/26/24 US abdomen
1. Diffuse gallbladder wall thickening, mild gallbladder distention, and cholelithiasis. ACUTE CALCULUS CHOLECYSTITIS is a diagnostic possibility.
2. Mild intrahepatic and extrahepatic biliary dilatation.
3. Severe diffuse liver disease (probably severe diffuse hepatic steatosis).
12/27/24 MR abd with and without contrast
1. ACUTE CALCULUS CHOLECYSTITIS.
2. Mild biliary dilatation without evidence for choledocholithiasis.
3. Mild diffuse hepatic steatosis.
4. Mild splenomegaly.
5. Moderate discogenic degenerative disease at L5/S1.
01/02/25 CT of the abdomen pelvis 1. No significant abnormality identified in the abdomen or pelvis, as described above.
01/03 MRCP:
Interval cholecystectomy.
Mild intrahepatic and extrahepatic bile duct dilatation, slightly increased compared to the MR abdomen from 12/27/2024. However, no MRCP evidence for choledocholithiasis.
PLAN
#Epigastric pain post lap cholecystectomy
# elevated LFT's
#intra and extraheaptic biliary dilatation
#recent increased NSAID use
# fatty liver
Etiology of pain and rise in LFT's related to passed stone, inflammation, gastritis with recent NSAIDS vs other
MRCP with ductal dilatation but no choledocholithiasis
Afebrile with no leukocytosis but still some persistent pain
LFT's trending down
imaging unrevealing for pain source
cont PPI, limit NSAIDs -- will stop Ibuprofen PRN
If persistent elevation or pain can consider EUS with EGD as also increased NSAID use prior to admission
Subjective
Subjective
Date of Service: January 04, 2025
on clear diet no stools, still with pain and actually feeling worse with pain radiating to back
Objective
Data Reviewed
Laboratory Data:
Laboratory Results
01/03/25 10:12
01/04/25 06:17
Laboratory Results
PT 12.3 Sec (11.4-14.6) 01/02/25 18:36
INR 0.89 01/02/25 18:36
APTT 24.6 Sec (23.4-35.0) 01/02/25 18:36
Total Bilirubin 5.1 mg/dl (0.2-1.3) H 01/04/25 06:17
AST 298 U/L (14-36) H 01/04/25 06:17
ALT 726 U/L (0-35) H* 01/04/25 06:17
Alkaline Phosphatase 303 U/L (38-126) H 01/04/25 06:17
Lipase 121 U/L (23-300) 01/02/25 18:36
Vital Signs and I&O:
Vital Signs
Temp Pulse Resp BP Pulse Ox
97.7 F 57 18 143/72 99
01/04/25 07:58 01/04/25 07:58 01/04/25 07:58 01/04/25 07:58 01/04/25 07:58
I&O
01/03/25 01/04/25 01/05/25
06:59 06:59 06:59
Intake Total 1415 / 1415 480 / 480
Balance 1415 / 1415 480 / 480
Physical Exam
Physical Exam
HEENT: Anicteric and Moist mucous membranes
Cardiology: Normal Sinus Rhythm
Pulmonary: Clear
GI: Soft, Non Distended and Tender (epigastric pain )
Extremities: No Edema
Neuro: Non Focal
[2025-01-04] MEDS: MORPHINE SULFATE 4 MG IV (11:59)
[2025-01-04 13:33] LABS: Lipase 93 U/L (23-300)
--- NOTE | 2025-01-04 15:46 | W.PN.GS2 ---
Today's Communication / Plan
-
EUS +/- ERCP tomorrow with GI
Assessment / Plan
-
49F POD7 s/p rCCY now with suspected choledocholithiasis
MRI repetedly negative for choledocho howwever epigastric pain continus, LFTs elevated with slow improvement
Agree with EUS +/- ERCP with GI
OK for CLD, [facility]
Abx per Hospitalist
DVT ppx
Subjective Data
-
Date of Service: January 04, 2025
AFVSS, epigastric pain ongoing, denies n/v
Objective Data
-
Intake and Output
01/03/25 01/04/25 01/05/25
06:59 06:59 06:59
Intake Total 1415 / 1415 480 / 480
Balance 1415 / 1415 480 / 480
Intake:
Oral fluids 240 / 240 480 / 480
IV fluids (Total) 975 / 975
D5/0.45%NaCl 1,000 ml @ 75 mls/ 75 / 75
hr IV .[id number] [facility] Rx#:[id number]
IV piggybacks 200 / 200
D5/0.45%NaCl 1,000 ml @ 75 mls/ 100 / 100
hr IV .[id number] [facility] Rx#:[id number]
Other:
Number of unmeasured voidings 2
Number of approximated MODERATE 2 1
amounts of urine
Vital Signs
Temp Pulse Resp BP Pulse Ox
97.7 F 57 18 143/72 99
01/04/25 07:58 01/04/25 07:58 01/04/25 07:58 01/04/25 07:58 01/04/25 07:58
Lab Results
01/03/25 10:12
01/04/25 06:17
Calcium 9.5 mg/dl (8.4-10.2) 01/04/25 06:17
Total Bilirubin 5.1 mg/dl (0.2-1.3) H 01/04/25 06:17
Direct Bilirubin 3.7 mg/dl (0.0-0.4) H 01/03/25 10:12
AST 298 U/L (14-36) H 01/04/25 06:17
ALT 726 U/L (0-35) H* 01/04/25 06:17
Alkaline Phosphatase 303 U/L (38-126) H 01/04/25 06:17
Total Protein 7.1 g/dl (6.3-8.2) 01/04/25 06:17
Albumin 4.2 g/dl (3.5-5.0) 01/04/25 06:17
Physical Exam
-
Gen: NAD
HEENT: icterus improving
Abd: soft, ttp to epigastrium, incisions cdi
Patient has a rosenberg catheter: No
Patient has a central line: No
[2025-01-04 15:49] VITALS: BP 155/78
[2025-01-04 23:00] VITALS: BP 159/88
[2025-01-05] MEDS: ZOSYN 50 IV ×2 (01:36→06:25)
[2025-01-05] MEDS: BENADRYL 25 MG IV (03:51)
[2025-01-05] MEDS: SYNTHROID 88 MCG PO (06:25)
[2025-01-05 07:05] VITALS: BP 144/83
[2025-01-05] MEDS: NSS (PRESERVATIVE FREE) 10 ML IV (07:21)
[2025-01-05] MEDS: PROTONIX IV 40 MG IV (07:21)
[2025-01-05 08:39] LABS: ALT (SGPT) 514 U/L (0-35); AST (SGOT) 133 U/L (14-36); Albumin 3.8 g/dl (3.5-5.0); Alkaline Phosphatase 271 U/L (38-126); Blood Urea Nitrogen 5 mg/dl (7-17); Calcium 9.7 mg/dl (8.4-10.2); Carbon Dioxide 27 mmol/L (22-30); Chloride 106 mmol/L (98-107); Glucose 106 mg/dl (70-99); Potassium 3.9 mmol/L (3.5-5.1); Sodium 142 mmol/L (135-145); Total Bilirubin 3.7 mg/dl (0.2-1.3); Total Protein 7.2 g/dl (6.3-8.2); eGFR > 60.00
--- NOTE | 2025-01-05 09:01 | W.PN.HOSP.TC ---
Today's Communication/Plan
-
Await GI input
Assessment / Plan
Assessment / Plan
Gen-AAOx3, NAD
HEENT-NC, AT, icteric, clear oral mm
Neck-supple
CV-reg, no M, +S1/S2
Lungs-clear B/L
Abd-soft, mild epigastric tenderness without guarding or rebound, nondistended
Ext-no edema
Musculoskeletal-no cyanosis, clubbing
Skin-warm and dry
Neuro-grossly non-focal
Psych-calm, cooperative
Obstructive jaundice -possibly due to choledocholithiasis. However, MRCP was negative. Bilirubin improved to 3.7, transaminases improving. Pain resolved.
Continue empiric IV Zosyn. Not septic clinically.
Unclear at this point in time if GI service will proceed with EUS/EGD given resolution of her abdominal pain and improvement in her bilirubin. GI to see patient today.
If no plans for procedure today then will resume diet and discharge if okay with GI service.
Recent calculus cholecystitis -underwent laparoscopic cholecystectomy 12/[address] Perez. Discharged 12/29. MRI on December 27 did not reveal choledocholithiasis.
Hypothyroidism -levothyroxine.
Obesity due to excess calories
Full code
Anticipated Discharge: Today
Subjective/Interval History
-
Date of Service: January 05, 2025
Patient seen and examined. Abdominal pain resolved. Still with mild itching.
Objective Data
-
Labs:
Laboratory Results
01/05/25
07:28
Sodium 142
Potassium 3.9
Chloride 106
Carbon Dioxide 27
BUN 5 L
Creatinine 0.9
Glucose 106 H
Calcium 9.7
Total Bilirubin 3.7 H
AST 133 H
ALT 514 H*
Alkaline Phosphatase 271 H
Vital Signs:
Vital Signs
Temp Pulse Resp BP Pulse Ox
98.0 F 62 16 144/83 97
01/05/25 07:05 01/05/25 07:05 01/05/25 07:05 01/05/25 07:05 01/05/25 07:05
I&O
01/04/25 01/05/25 01/06/25
06:59 06:59 06:59
Intake Total 1415 / 1415 960 / 960
Balance 1415 / 1415 960 / 960
Review of Systems
-
History Source: Patient
All other systems: Reviewed and negative
--- NOTE | 2025-01-05 10:24 | W.PN.GI.CBS2 ---
Today's Communication / Plan
-
Pain has resolved
LFTs trending down. Suspect passed stone
Try low fat diet. If tolerates, ok for d/c
Continue protonix daily x 1 month. PUD also possible (but does not account for LFTs)
Recheck LFTs next week
F/U with me in office
Assessment / Plan
-
49-year-old female with history of hypothyroidism, s/p post laparoscopic cholecystectomy about 5 days ago presented with epigastric pain and pruritus. Workup in the ED reveals elevation of total bilirubin of 5.9, significant elevation of AST 821,
ALT 1009, alk phos 359 with slow improvement after admission.
12/26/24 US abdomen
1. Diffuse gallbladder wall thickening, mild gallbladder distention, and cholelithiasis. ACUTE CALCULUS CHOLECYSTITIS is a diagnostic possibility.
2. Mild intrahepatic and extrahepatic biliary dilatation.
3. Severe diffuse liver disease (probably severe diffuse hepatic steatosis).
12/27/24 MR abd with and without contrast
1. ACUTE CALCULUS CHOLECYSTITIS.
2. Mild biliary dilatation without evidence for choledocholithiasis.
3. Mild diffuse hepatic steatosis.
4. Mild splenomegaly.
5. Moderate discogenic degenerative disease at L5/S1.
01/02/25 CT of the abdomen pelvis 1. No significant abnormality identified in the abdomen or pelvis, as described above.
01/03 MRCP:
Interval cholecystectomy.
Mild intrahepatic and extrahepatic bile duct dilatation, slightly increased compared to the MR abdomen from 12/27/2024. However, no MRCP evidence for choledocholithiasis.
PLAN
#Epigastric pain post lap cholecystectomy
# elevated LFT's
#intra and extraheaptic biliary dilatation
#recent increased NSAID use
# fatty liver
Subjective
Subjective
Date of Service: January 05, 2025
Pain has resolved. Urine less dark
Objective
Data Reviewed
Laboratory Data:
Laboratory Results
01/03/25 10:12
01/05/25 07:28
Laboratory Results
PT 12.3 Sec (11.4-14.6) 01/02/25 18:36
INR 0.89 01/02/25 18:36
APTT 24.6 Sec (23.4-35.0) 01/02/25 18:36
Total Bilirubin 3.7 mg/dl (0.2-1.3) H 01/05/25 07:28
AST 133 U/L (14-36) H 01/05/25 07:28
ALT 514 U/L (0-35) H* 01/05/25 07:28
Alkaline Phosphatase 271 U/L (38-126) H 01/05/25 07:28
Lipase 93 U/L (23-300) 01/04/25 06:17
Vital Signs and I&O:
Vital Signs
Temp Pulse Resp BP Pulse Ox
98.0 F 62 16 144/83 97
01/05/25 07:05 01/05/25 07:05 01/05/25 07:05 01/05/25 07:05 01/05/25 07:05
I&O
01/04/25 01/05/25 01/06/25
06:59 06:59 06:59
Intake Total 1415 / 1415 960 / 960
Balance 1415 / 1415 960 / 960
Physical Exam
Physical Exam
GI: Soft and Non Tender
--- NOTE | 2025-01-05 10:24 | W.DS.TRANS ---
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
-
Discharge Instructions:
Discharge Diagnosis/Procedures Obstructive jaundice
Diet Low Fat,Low Cholesterol
Activity As tolerated
Driving Restrictions As prior to admission
Bathing Restrictions None
Blood Work CMP next week with your primary care doctor
Instructions:
Stand-Alone Forms:
Changes to Home Medications: Yes
Discharge Medications:
DC Medications w/original date entered in [facility]
alprazolam 0.25 mg tablet (Xanax) 0.25 mg PO BIDPRN PRN anxiety 12/26/24
cholecalciferol (vitamin D3) 25 mcg (1,000 unit) tablet (Vitamin D3) 25 mcg PO DAILY Supplement 12/26/24
levothyroxine 88 mcg tablet (Synthroid) 88 mcg PO DAILY Thyroid 12/26/24
pantoprazole 40 mg tablet,delayed release (Protonix) 40 mg PO DAILY #30 tabs 01/05/25
Home Medication Changes
Stop ibuprofen
Pending Results: No
--- NOTE | 2025-01-05 11:23 | CM ---
Patient stable for d/c today.
No CM needs identified at this time
Plan: Home, no needs
--- NOTE | 2025-01-05 13:58 | PTCARENOTE ---
Patient states tolerating diet, denies any pain, nausea, or vomiting. Patient preparing for d/c
[2025-01-05 14:03] VITALS: BP 140/83
--- NOTE | 2025-01-05 14:22 | W.PN.GS2 ---
Today's Communication / Plan
-
s/o
Assessment / Plan
-
49F POD8 s/p rCCY now with suspected choledocholithiasis
Resolution of epigastric pain, LFTs improving
Reasonable to defer EUS +/- ERCP with GI
ADAT to reg diet
Abx per Hospitalist, no need for abx from surgical standpoint
DVT ppx
Pls call if ?s
Subjective Data
-
Date of Service: January 05, 2025
Improved, Pain resolved, Icterus resolved. Feels better
Objective Data
-
Intake and Output
01/04/25 01/05/25 01/06/25
06:59 06:59 06:59
Intake Total 1415 / 1415 960 / 960 240 / 240
Balance 1415 / 1415 960 / 960 240 / 240
Intake:
Oral fluids 240 / 240 960 / 960 240 / 240
IV fluids (Total) 975 / 975
D5/0.45%NaCl 1,000 ml @ 75 mls/ 75 / 75
hr IV .[id number] [facility] Rx#:[id number]
IV piggybacks 200 / 200
D5/0.45%NaCl 1,000 ml @ 75 mls/ 100 / 100
hr IV .[id number] [facility] Rx#:[id number]
Other:
Number of unmeasured voidings 2
Number of approximated MODERATE 2 4
amounts of urine
Number of approximated LARGE 1
amounts of urine
Vital Signs
Temp Pulse Resp BP Pulse Ox
97.7 F 76 16 140/83 95
01/05/25 14:03 01/05/25 14:03 01/05/25 14:03 01/05/25 14:03 01/05/25 14:03
Lab Results
01/03/25 10:12
01/05/25 07:28
Calcium 9.7 mg/dl (8.4-10.2) 01/05/25 07:28
Total Bilirubin 3.7 mg/dl (0.2-1.3) H 01/05/25 07:28
Direct Bilirubin 3.7 mg/dl (0.0-0.4) H 01/03/25 10:12
AST 133 U/L (14-36) H 01/05/25 07:28
ALT 514 U/L (0-35) H* 01/05/25 07:28
Alkaline Phosphatase 271 U/L (38-126) H 01/05/25 07:28
Total Protein 7.2 g/dl (6.3-8.2) 01/05/25 07:28
Albumin 3.8 g/dl (3.5-5.0) 01/05/25 07:28
Physical Exam
-
Gen: NAD, no icterus
Abd: soft, nt, incisions cdi
Patient has a rosenberg catheter: No
Patient has a central line: No
== END 2025-01-05 14:29 | disposition home or self-care (01) | DRG 445 ==
LOC: 4 WEST ACU 02:31
PROVIDERS: Emergency Medicine; Student in an Organized Health Care Education/Training Program; ADMITTING PHYSICIAN Internal Medicine; ATTENDING PHYSICIAN Hospitalist; CONSULT PHYSICIAN Specialist; EMERGENCY PHYSICIAN Student in an Organized Health Care Education/Training Program; FAMILY PHYSICIAN Family Medicine; OTHER PHYSICIAN Surgery
DX: K80.51 Calculus of bile duct without cholangitis or cholecystitis with obstruction (principal); K80.00 Calculus of gallbladder with acute cholecystitis without obstruction; E03.9 Hypothyroidism, unspecified; E66.09 Other obesity due to excess calories
CPT/HCPCS: 74177; 74181; 80053; 82248; 83690; 85025; 85610; 85730; 93005; Q9967

== ENCOUNTER 2025-04-15 02:39 | Inpatient (IN) | payer OTHER, SELFPAY ==
[2025-04-14 19:23] VITALS: BP 146/82
[2025-04-14 19:52] LABS: Hematocrit 40.5 % (37.0-47.0); Hemoglobin 13.9 g/dL (12.0-16.0); Mean Corp Hgb Conc. 34.3 g/dL (33.0-37.0); Mean Corpuscular Volume 81.7 fL (81.0-99.0); Nucleated Red Blood Cells % 0 %; Platelet Count 262 10^3/uL (130-400); Red Cell Dist. Width 12.0 % (11.5-14.5)
[2025-04-14 20:13] LABS: ALT (SGPT) 575 U/L (0-35); AST (SGOT) 721 U/L (14-36); Albumin 4.8 g/dl (3.5-5.0); Alkaline Phosphatase 201 U/L (38-126); Blood Urea Nitrogen 16 mg/dl (7-17); Calcium 9.6 mg/dl (8.4-10.2); Carbon Dioxide 27 mmol/L (22-30); Chloride 103 mmol/L (98-107); Glucose 129 mg/dl (70-99); Lipase 116 U/L (23-300); Potassium 4.3 mmol/L (3.5-5.1); Sodium 138 mmol/L (135-145); Total Protein 8.1 g/dl (6.3-8.2); eGFR > 60.00
[2025-04-14 22:04] VITALS: BMI 33.8
--- NOTE | 2025-04-14 22:07 | EDRN ---
Pt had her gallbladder removed in December and comes to ED tonight with similar pain mid upper abdomen radiating into R abdomen. Pt feels bloated. Pain started this morning around 0700 and is constant. Pt did not take anything for pain. Pt restarted
her protonix yesterday. Pt vomited twice today, second time was in the ED waiting room. Pain improved after vomiting. Pt adds when she vomited this morning she had one episode of diarrhea, none since. No constipation. Pt with nausea all day.
Pt ate oatmeal at 1800 and vomited in waiting room. Pain is a constant dullness.
[2025-04-14 22:12] VITALS: BP 149/75
[2025-04-14] MEDS: NSS 1000 IV (22:43)
[2025-04-14 23:20] VITALS: BP 158/89
--- NOTE | 2025-04-15 00:52 | ED.GENMED ---
History of Present Illness
General
Chief Complaint: Abdominal Pain
Source: patient
Exam Limitations: none
Time Seen by Provider: 04/14/25 22:10
Nursing documentation reviewed up to this point in time: agreed with
History of Present Illness
History of Present Illness:
Note:
CHIEF COMPLAINT(S)
Epigastric and right upper abdominal pain.
HISTORY OF PRESENT ILLNESS
The patient is a 49-year-old female presenting with epigastric and right upper abdominal pain that began this morning at 10 a.m. The pain has been intermittent and is associated with nausea and vomiting. The patient experienced a vomiting episode
while in the waiting room, after which she reported relief of the pain. Additionally, she describes chest pain that is aggravated by deep breathing. The patient underwent a cholecystectomy in December and has experienced distance between herself and
others since the surgery.
PHYSICAL EXAM
General: Alert, no acute distress.
Skin: Warm, dry.
Head: Normocephalic, atraumatic.
Neck: Supple, trachea midline.
Eye Ears, nose, mouth, and throat: Oral mucosa moist.
Cardiovascular: Normal peripheral perfusion, No edema.
Respiratory: Respirations are non-labored.
Gastrointestinal: Abdomen nondistended. Right upper quadrant tenderness to palpation
Back: Normal range of motion, Normal alignment.
Musculoskeletal: Normal range of motion, normal strength.
Neurological: Alert and oriented to person, place, time, and situation, No focal neurological deficit observed.
Psychiatric: Cooperative, appropriate mood & affect.
PROBLEM LIST
- Acute epigastric and right upper abdominal pain.
- Intermittent nausea and vomiting.
- Chest pain upon deep breathing.
- Status post cholecystectomy in December.
PLAN
Further diagnostic evaluation is required to determine the underlying cause of the abdominal pain and associated symptoms. The plan includes observation, pain management, and potential imaging studies or laboratory tests as indicated based on
clinical judgment and progression of symptoms.
DIFFERENTIAL DIAGNOSIS
The Differential Diagnosis includes, in no particular order and is not limited to:
- Biliary colic or post-cholecystectomy syndrome
- Gastritis or peptic ulcer disease
- Pancreatitis
- Gastroesophageal reflux disease (GERD)
- Hepatitis
- Myocardial ischemia
- Pulmonary embolism
- Pneumonia
- Costochondritis
- Anxiety or psychological factors
CARE-UPDATE
04/15/25 - 00:40
Liver function tests remain abnormal; further investigation required. Patient may need to stay overnight for closer observation. Consultation with GI team planned; awaiting their recommendations. Patient has previously seen a GI specialist from our
hospital.
Disposition:
SUMMARY OF ENCOUNTER
A 49-year-old female presented to the emergency department with right upper quadrant abdominal pain. The patient had a normal abdominal ultrasound and a normal CT scan. However, she had elevated transaminases. After discussing the case with the
gastroenterology team, it was recommended that the patient undergo an MRI/MRCP to further evaluate the cause of her symptoms. This could be done as an outpatient, but the patient requested admission due to her concerns about the potential return of
pain, despite currently being pain-free after vomiting in the waiting room.
DISPOSITION
Admit to hospital service.
MANAGEMENT OF THE PATIENTS CARE WAS DISCUSSED WITH
Spoke with gastroenterology who recommended admission for MRI/MRCP.
PLAN
The patient will be admitted to the hospital for further evaluation and management. An MRI/MRCP will be conducted to investigate the cause of elevated transaminases and abdominal pain.
MEDICAL DECISION MAKING
-Complexity of Data Reviewed: Chronic conditions affecting care include status post cholecystectomy. Differential Diagnosis includes biliary colic or post-cholecystectomy syndrome, gastritis or peptic ulcer disease, pancreatitis, gastroesophageal
reflux disease (GERD), hepatitis, myocardial ischemia, pulmonary embolism, pneumonia, costochondritis, anxiety or psychological factors.
-Data:
Category 3:
Discussion of management with gastroenterology regarding the elevated transaminases and recommendation for MRI/MRCP.
-Risk: Consideration of Admission/Observation: Escalation of care including admission/observation was considered given the complexity and risk of the patients presenting complaint and exam findings. The patient was ultimately admitted for further
evaluation.
DIAGNOSIS
- Right upper quadrant abdominal pain, unspecified (R10.11)
- Elevated transaminases (R74.0)
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
Past History
Past History
ED Past Medical History: Hypothyroidism
Social History
Tobacco: Non-smoker
Personal:
Living: with family
Phy Exam
Physical Exam
Physical Exam:
.
Course
Orders/Labs/Results
Orders:
Orders
04/14/25 19:43
Complete Blood Count/With Diff Urgent
Comprehensive Metabolic Panel Urgent
Lipase Urgent
04/14/25 22:35
CT Abd/pelvis W Iv Cont Urgent
Comment:
Reason For Exam: hx of cholecystectomy, RUQ pain, elev LFTs
0.9% Sodium Chloride 1000 ml [Nss] 1,000 ml IV BOLUS
04/14/25 23:23
US Abdomen Limited Urgent
Reason For Exam: abd pain, Hx of cholecystectomy, elev LFTs
Abnormal Lab Results
04/14/25
19:43
MPV 10.6 H fL
(7.4-10.4)
Glucose 129 H mg/dl
(70-99)
Total Bilirubin 1.9 H mg/dl
(0.2-1.3)
AST 721 H* U/L
(14-36)
ALT 575 H* U/L
(0-35)
Alkaline Phosphatase 201 H U/L
(38-126)
04/14/25 19:43
04/14/25 19:43
Vital Signs
Initial and Last Documented VS:
Initial Vital Signs
Temp Pulse Resp BP Pulse Ox
97.8 F 64 16 146/82 100
04/14/25 19:23 04/14/25 19:23 04/14/25 19:23 04/14/25 19:23 04/14/25 19:23
Last Documented Vital Signs
Temp Pulse Resp BP Pulse Ox
98 F 87 16 158/89 98
04/14/25 22:12 04/14/25 23:20 04/14/25 22:12 04/14/25 23:20 04/14/25 23:20
*Radiology
Radiology exam reviewed: radiology read reviewed
*Pulse Oximetry
SaO2: 98
Oxygen Mode of Delivery: Room air
Patient hypoxic: no
*Critical Care Note
Total Time (30-74mins, 75-104mins- exclusive of procedures): Not Applicable
Update Note
Update Note:
NAME: STEPHANIE MOONEY
DATE OF EXAM: 04/14/2025
Patient No: [id number]
Physician: WILLY
Date of : 1975
Past Medical History (entered by Technologist):
Reason For Exam (entered by Technologist): ruq pain; elev lft's; h/o cholecystectomy
Other Notes (entered by Technologist): prev sent
Additional Information (per [facility] Radiologist):
CT ABDOMEN/PELVIS WITH CONTRAST
IMPRESSION:
1. No acute abnormality within the abdomen or pelvis.
2. No bowel obstruction. Status post cholecystectomy. The appendix is not well seen.
Incidentals:
- Diverticulosis
- No obstructive uropathy.
- No hepatic or pancreatic mass.
- No abdominal aortic aneurysm.
- No acute osseous abnormality.
- Bibasilar atelectasis
- No acute abnormality within the visualized soft tissues.
Case finalized on Apr 14 2025 11:21PM ET
Obed Valdez M.D.
This report has been electronically signed and verified by the Radiologist whose name is printed above.
NAME: STEPHANIE MOONEY
DATE OF EXAM: 04/14/2025
Patient No: [id number]
Physician: NATHANIEL^Gayathri
Date of : 1975
Past Medical History (entered by Technologist):
Reason For Exam (entered by Technologist): ABD PAIN, ELEVATED LFTS
Other Notes (entered by Technologist): [facility] IN DECEMBER
CT TONIGHT , READ BY [facility]
Additional Information (per [facility] Radiologist):
RIGHT UPPER QUADRANT ULTRASOUND
IMPRESSION:
Status post cholecystectomy. Normal appearance of the CBD. No intra or extrahepatic biliary dilatation.
Case finalized at 04/15/25 00:10 EST
Obed Valdez M.D.
This report has been electronically signed and verified by the Radiologist whose name is printed above.
ED Attending Note
-
Portions of this chart may have been created with voice recognition software.� Occasional wrong word or��sound alike� substitutions may have occurred due to the inherent limitations of voice recognition software.
Discharge Plan
Departure
Patient Disposition: Admit
Date of Disposition: 04/15/25
Time of Disposition: 01:08
Admit to: Telemetry
Presentation/result/management discussed w/ accepting MD/DO: Hospitalist
Discharge Problem:
Right upper quadrant abdominal pain, Transaminitis, Elevated bilirubin
Prescriptions:
No Action
levothyroxine [Synthroid] 88 mcg Tablet
88 mcg PO DAILY
pantoprazole [Protonix] 40 mg tablet,delayed release (DR/EC)
40 mg PO DAILY Qty: 30 0RF
Patient Comments:
pt started it yesterday and today
Referrals:
Charli Kat MD [Family Provider, Family Practice]
Interventions
Interventions:
*Risk Screen - Suicide Last Done: 04/14/25 22:04
*General Assessment Last Done: 04/14/25 22:04
*Neglect/Abuse Screening Last Done: 04/14/25 22:04
*ED- Fall Risk Assessment Last Done: 04/14/25 22:13
AV-Fyoksg-Zaokzuctax Assessment Last Done: 04/14/25 22:17
Discharge Date and Time
Print Language: PORTUGUESE
[2025-04-15 01:42] VITALS: BP 146/76
--- NOTE | 2025-04-15 02:24 | HPS.HSE ---
Family Physician
-
Family Physician: Charli Kat MD
Chief Complaint
-
Abd Pain
History of Present Illness
Patient is a 49y F with PMH significant for hypothyroidism and obesity who presents to ED complaining of abdominal pain and N/V. Patient reports development of epigastric pain and intermittent nausea in December of this year. She was initially
evaluated and felt to have gallstone disease. She underwent cholecystectomy on 12/28/24. Patient returned to the hospital with jaundice on 01/03. She was treated supportively and symptoms eventually improved. MRCP done on 01/03 showed mild ductal
dilation and was otherwise unremarkable.
Patient states that she has continued with intermittent discomfort and nausea since that time.
She notes that she felt better while on daily PPI after her last hospital stay. She finished this about one month ago. She restarted OTC Prilosec yesterday given new / worsening symptoms.
Today patient presented to the ED for further evaluation of ongoing / worsening symptoms.
Medical History
Past Medical History
Past Medical History: Reports Other
Additional Past Medical History:
Hypothyroidism
Obesity
Past Surgical History: Reports Other
Additional Past Surgical History:
Lumpectomy (benign)
Cholecystectomy
Social History
Tobacco: Non-smoker
Alcohol: None
Drug: None
Family History
Family History: Not pertinent
Allergies / Home Medications
Allergies reflects when Allergies were last updated in [facility].
Home Medications with original date entered in [facility]
Allergy/Medication List:
Allergies
Allergy/AdvReac Type Severity Reaction Status Date / Time
prochlorperazine (From Allergy Unknown Verified 04/14/25 19:26
Compazine)
Home Medications
levothyroxine 88 mcg tablet (Synthroid) 88 mcg PO DAILY Thyroid 12/26/24
pantoprazole 40 mg tablet,delayed release (Protonix) 40 mg PO DAILY #30 tabs 01/05/25
Review of Systems
-
History Source: Patient
A 12 point ROS was completed and negative except as noted: Yes
Constitutional: Denies Fever or Chills
Respiratory: Denies Cough or Trouble Breathing
Cardiac: Reports Diaphoresis; Denies Chest Pain or Palpitations
Abdomen/GI: Reports Abdominal Pain, Nausea and Vomiting; Denies Diarrhea, Constipated, Bloody Stools or Black Stools
: Denies Dysuria or Flank Pain
Musculoskeletal: Denies Joint Pain or Edema
Neurological: Denies Dizzy or Headache
Physical Exam
Vital Signs
Vital Signs
Temp Pulse Resp BP Pulse Ox
98 F 69 14 146/76 99
04/14/25 22:12 04/15/25 01:42 04/15/25 01:42 04/15/25 01:42 04/15/25 01:42
Physical Exam
General: Other (49y F in no acute distress.)
HEENT: Moist mucous membranes and PERRLA
Respiratory: Clear; No Wheezes, Rales or Rhonchi
Cardiac: S1/S2 and Regular Rhythm; No Murmur
GI: Soft, Non Distended, Normal Bowel Sounds and Other (Pos epigastric / RUQ tenderness. No rebound / guarding. Normal bowel sounds.)
Musculoskeletal: No Clubbing, No Cyanosis and No Edema
Neuro: AO x 3
Laboratory Results
-
04/14/25 19:43
04/14/25 19:43
Laboratory Results
Total Bilirubin 1.9 mg/dl (0.2-1.3) H 04/14/25 19:43
AST 721 U/L (14-36) H* 04/14/25 19:43
ALT 575 U/L (0-35) H* 04/14/25 19:43
Alkaline Phosphatase 201 U/L (38-126) H 04/14/25 19:43
Lipase 116 U/L (23-300) 08/22/25 19:43
Impression/Plan
-
A/P: Patient is a 49y F with PMH significant for hypothyroidism who presents to ED complaining of abdominal pain with intermittent N/V.
Abdominal Pain
Transaminitis
- Admit for further evaluation and treatment.
- Recurrent / intermittent symptoms since December despite cholecystectomy.
- ? retained stone - though none seen on any imaging thus far, including MRCP on 01/03.
- NPO, pain control, antiemetics, etc.
- GI consulted for additional recommendations.
- Repeat MRCP per GI recs.
- Check hepatitis panel, CELINA / ASMA, etc.
- Follow for any new / worsening symptoms.
Hypothyroidism
- Continue T4 supplementation.
Obesity due to excess calories
- Affects all aspects of care.
- Encourage healthy diet and increased exercise with goal of weight loss.
DVT Prophylaxis: SCDs
Code Status: Full
[2025-04-15 03:26] VITALS: BP 162/86
[2025-04-15 03:27] VITALS: BMI 33.7
[2025-04-15] MEDS: SYNTHROID 88 MCG PO (05:46)
[2025-04-15 06:24] LABS: Glucose - Point of Care 100 mg/dl (70-99)
[2025-04-15 07:00] VITALS: BP 147/83
[2025-04-15] MEDS: NSS (PRESERVATIVE FREE) 10 ML IV ×2 (08:10→20:40)
[2025-04-15] MEDS: PROTONIX IV 40 MG IV ×2 (08:10→20:40)
[2025-04-15 08:49] LABS: Hematocrit 40.8 % (37.0-47.0); Hemoglobin 13.8 g/dL (12.0-16.0); Mean Corp Hgb Conc. 33.8 g/dL (33.0-37.0); Mean Corpuscular Volume 83.8 fL (81.0-99.0); Platelet Count 273 10^3/uL (130-400); Red Cell Dist. Width 12.3 % (11.5-14.5)
--- NOTE | 2025-04-15 09:07 | W.PN.HOSP.TC ---
Today's Communication/Plan
-
MRCP
GI consult
Assessment / Plan
Assessment / Plan
Gen-AAOx3, NAD
HEENT-NC, AT, anicteric, clear oral mm
Neck-supple
CV-reg, no M, +S1/S2
Lungs-clear B/L
Abd-soft, mild epigastric and right upper quadrant tenderness. Not distended.
Ext-no edema
Musculoskeletal-no cyanosis, clubbing
Skin-warm and dry
Neuro-grossly non-focal
Psych-calm, cooperative
Abdominal pain -with associated vomiting. Location is epigastric pain and right upper quadrant. Patient states she was taking Protonix for 2 months after her last discharge in December of this year with no symptoms. She stopped Protonix for 1 month
and then resumed 2 days ago due to recurrence of epigastric discomfort. She had an episode of vomiting at home that resolved the pain but subsequently recurred.
Differential diagnosis of peptic ulcer disease versus other etiology. Lipase is 116.
Abdominal ultrasound shows moderate diffuse hepatic steatosis, no sonographic evidence of biliary obstruction.
CT shows moderate diffuse hepatic steatosis, previous cholecystectomy and appendectomy.
MRI abdomen pending. Xanax ordered on-call to MRI per nursing request given patient's anxiety.
GI consulted to consider EGD, although peptic ulcer disease would not explain LFT abnormalities.
Elevated LFTs -mixed picture with transaminitis and elevated bilirubin and alkaline phosphatase.
Viral hepatitis panel pending.
Hypothyroidism -levothyroxine.
Obesity due to excess calories
Full code
Anticipated Discharge: 24 - 48 hours
Subjective/Interval History
-
Date of Service: April 15, 2025
Patient seen and examined. Has intermittent epigastric and right upper quadrant pain.
Objective Data
-
Labs:
Laboratory Results
04/15/25
06:59
WBC 5.5
Hgb 13.8
Hct 40.8
Plt Count 273
Sodium Pending
Potassium Pending
Chloride Pending
Carbon Dioxide Pending
BUN Pending
Creatinine Pending
Glucose Pending
Calcium Pending
Total Bilirubin Pending
AST Pending
ALT Pending
Alkaline Phosphatase Pending
Vital Signs:
Vital Signs
Temp Pulse Resp BP Pulse Ox
97.8 F 69 17 147/83 98
04/15/25 07:00 04/15/25 07:00 04/15/25 07:00 04/15/25 07:00 04/15/25 07:00
Review of Systems
-
History Source: Patient
All other systems: Reviewed and negative
[2025-04-15 09:16] LABS: ALT (SGPT) 706 U/L (0-35); AST (SGOT) 594 U/L (14-36); Albumin 4.4 g/dl (3.5-5.0); Alkaline Phosphatase 193 U/L (38-126); Blood Urea Nitrogen 12 mg/dl (7-17); Calcium 9.7 mg/dl (8.4-10.2); Carbon Dioxide 27 mmol/L (22-30); Chloride 106 mmol/L (98-107); Estimated Creatinine Clearance 93 ml/min; Glucose 94 mg/dl (70-99); Potassium 4.2 mmol/L (3.5-5.1); Sodium 140 mmol/L (135-145); Total Protein 7.5 g/dl (6.3-8.2); eGFR > 60.00
--- NOTE | 2025-04-15 09:54 | CON.GI ---
Addendum entered and electronically signed by Johnathon Jimenez MD 04/15/25 16:30:
I saw and evaluated the patient. I reviewed the resident�s note and agree with findings and plan as documented in the resident�s note.
49yo female recent hx gallstones, abd pain, underwent cholecystectomy 12/28. During that admission, TBil 4.3, AST 583, ALT 618. MRI prior to danette was negative for CBD stone. She returned to hospital with jaundice and abd pain. TB up to 5.9, AST
821, ALT 1009. MRI again negative for CBD stone, but mild IHDD/EHDD with CBD 9mm. She continued to have pain despite negative MRI and plans were made for EUS, but that day her pain resolved and d/c with possible passed stone. LFT 01/26 showed TB
1.1, AST 75, ALT 160. She was relatively pain free on PPI for 2 months. She tried stopping it last month. This last week she had severe pain after breakfast and dinner on Thursday epigastric/RUQ. She had EGD 18 yrs ago negative HP. She takes rare
NSAIDs and only used it BID for 2 days after danette.
In ER, TB 1.9, AST 721, ALT 575. Improved today slightly. She had MRI/MRCP- moderate biliary dilation without CBD stone or mass. There is moderate IHDD: CHD 1.2cm, prox CBD 1.3cm, distal CBD 8.7mm.
REC:
Unclear cause for RUQ pain and abnl LFTs. Still suspicious for CBD stone despite negative MRI. May consider EUS Thursday when Dr Otto is available
In meantime, cont pain meds
I added Bentyl to treat possible SOD. Could consider ERCP/sphincterotomy to possibly treat, but that is controversial given high risk of pancreatitis.
Also, consider EGD to r/o PUD, but that would not explain LFTs, unless PUD was compressing ampulla. She denies NSAIDS. Increase PPI to BID
Original Note:
Consultation
-
Date/Time Consultation Requested: 04/15/25 03:22
Date/Time Consultation Performed: 04/15/25 09:54
Requesting Provider: Dick Maxwell MD
Performing Provider: Delano Johnson DO (Resident); Johnathon Jimenez MD
Reason for Consultation: Abdominal Pain; Abnormal LFTs
Medical History
Chief Complaint / HPI
Chief Complaint: Abdominal Pain
History of Present Illness:
Anuja Arreguin is a 49F with a past medical history significant for hypothyroidism, obesity, and cholelithiasis s/p cholecystecomy 3 months ago who is presenting for recurrent abdominal pain.
There was initial development of epigastric RUQ abdominal pain in November of this year, patient was diagnosed with biliary colic secondary to cholelithiasis and discharge for outpatient follow up with gen surg. She returned with recurrent abdominal
pain prior to that appointment and underwent inpatient lap danette on 12/28/24. Preprocedure the MRI did not show any biliary ductal dilatation and no choledocholithiasis. IOC negative for choledocho.
She returned with abdominal pain, jaundice and itching on 01/03 with ED labs showing total bilirubin of 5.9, AST to 800 ALT to 1000 and alk phos of [address] of the abdomen pelvis showed mild gastric wall thickening. MRCP was done
showed mild intrahepatic and extrahepatic bile duct dilatation, slightly increased compared to the MR abdomen from 12/27/2024. However, no MRCP evidence for choledocholithiasis. Pain resolved and LFTs improved, suggesting passage of stone, and patient
discharge.
Patient was discharged with Pantoprazole and states that taking this medication made her feel a lot better in the interim.
Current abdominal pain symptoms began 2 days ago. Pain with the same characteristics as prior. Took a pantoprazole, and pain subsided. She then woke up yesterday morning with some discomfort, and then ate breakfast which made the pain much worse
5-10 minutes after the meal. She had one episode of vomiting NBNB liquid and undigested food, which improved the pain. During this entire time, she has additionally felt bloated. Yesterday evening, the pain worsened again to an 8/10 pain. Pain was
now radiating to right flank and it was also painful to take a deep breath. She vomited twice, NBNB liquid and undigested food. This prompted her visit to the ED. She denies any comparative factors to different types of food.
ED COURSE
WBC nml, AST 721 ALT 575 Alk-Phos [address] Abd/Pelv w/ IV: Moderate diffuse hepatic steatosis.
US Abdomen: MODERATE DIFFUSE HEPATIC STEATOSIS.
Today the patient continues to have abdominal pain ranging from 5-8/10 pain and bloating. She endorses having a bowel movement this morning that looked yellow. Denies darkened urine.
Past Medical History
Past Medical History: Hypothyroidism
Past Surgical History: Appendectomy, Cholecystectomy and Other (Breast)
Social History
Tobacco: Non-Smoker
Alcohol: Occasional
Drug: None
Personal:
Living: With Family
Family History
Family History: Other (Denies Fhx Liver Diseases. Denies FHx of Colon, Gastric, Liver, GB, Pancreatic or Esophageal CA. Denies Fhx of IBD. )
Allergies / Home Medications
Allergy/AdvReac Type Severity Reaction Status Date / Time
prochlorperazine (From Allergy Unknown Verified 04/14/25 19:26
Compazine)
�Medication �Instructions �Recorded
levothyroxine 88 mcg tablet 88 mcg PO DAILY Thyroid 12/26/24
(Synthroid)
pantoprazole 40 mg tablet,delayed 40 mg PO DAILY #30 tabs 01/05/25
release (Protonix)
Review of Systems
-
History Source: Patient
All other systems: A 12 pt ROS was Negative except as stated above in HPI
Vital Signs
Temp Pulse Resp BP Pulse Ox
97.8 F 69 17 147/83 98
04/15/25 07:00 04/15/25 07:00 04/15/25 07:00 04/15/25 07:00 04/15/25 07:00
Physical Exam
Exam
General: No Apparent Distress and Comfortable
HEENT: Anicteric
GI: Soft, Normal Bowel Sounds, Tender (mild epigastric) and Other (obese)
Skin: Warm
Neuro: Awake
Psych: Calm
Results
WBC 5.5 10^3/uL (4.8-10.8) 04/15/25 06:59
Hgb 13.8 g/dL (12.0-16.0) 04/15/25 06:59
Hct 40.8 % (37.0-47.0) 04/15/25 06:59
MCV 83.8 fL (81.0-99.0) 04/15/25 06:59
Plt Count 273 10^3/uL (130-400) 04/15/25 06:59
Absolute Neuts (auto) 4.7 10^3/uL (1.4-6.5) 04/14/25 19:43
Sodium 140 mmol/L (135-145) 04/15/25 06:59
Potassium 4.2 mmol/L (3.5-5.1) 04/15/25 06:59
Chloride 106 mmol/L (98-107) 04/15/25 06:59
Carbon Dioxide 27 mmol/L (22-30) 04/15/25 06:59
BUN 12 mg/dl (7-17) 04/15/25 06:59
Creatinine 0.8 mg/dL (0.6-1.0) 04/15/25 06:59
Calcium 9.7 mg/dl (8.4-10.2) 04/15/25 06:59
Total Bilirubin 1.2 mg/dl (0.2-1.3) 04/15/25 06:59
AST 594 U/L (14-36) H* 04/15/25 06:59
ALT 706 U/L (0-35) H* 04/15/25 06:59
Alkaline Phosphatase 193 U/L (38-126) H 04/15/25 06:59
Lipase 116 U/L (23-300) 04/14/25 19:43
Abdomen US (04/15/25): MODERATE DIFFUSE HEPATIC STEATOSIS.
CT Abd/Pelv w/ IV (04/15/25): Moderate diffuse hepatic steatosis.
MRI/MRCP (01/03/25): Mild intrahepatic and extrahepatic bile duct dilatation, slightly increased compared to the MR abdomen from 12/27/2024. However, no MRCP evidence for choledocholithiasis.
CT Abd/Pelv w/ IV & oral (01/02/25):No significant abnormality
Assessment / Plan
-
Anuja Arreguin is a 49F with a PMhx of hypothyroidism, obesity, and cholelithiasis s/p cholecystecomy 3 months ago who is presenting for recurrent abdominal pain and elevated liver enzymes. Total bilirubin was elevated to 1.9 on admission and has
normalized this morning. AST 721 ALT 575 on admission, with improvement in AST and worsening of ALT this AM. Overall numbers seem to be improving. If these abnormalities are due to a ductal stone, it may be possible the stone has passed again,
however, patient is continuing to have pain. We will continue to follow.
- Follow MRI/MRCP results
- If MR is positive for a stone, will plan for ERCP
- If MR is negative but the patient continues to have pain, plan for EUS.
- Continue to Monitor LFTs
- Agree with viral and autoimmune hepatitis panels
Total Time Spent with Patient (in minutes): 42
-
-
Thank you for consultation and allowing me to participate in the patient's care. Please call the on awake counselor GI physician during the after hours with any questions or concerns.
[2025-04-15 10:35] LABS: Glycohemoglobin (HgbA1c) 5.9 % (4.0-5.6)
[2025-04-15] MEDS: LR 1000 IV (11:07)
[2025-04-15] MEDS: DILAUDID 0.5 MG IV ×3 (11:12→16:09)
[2025-04-15] MEDS: XANAX 0.5 MG PO (11:22)
--- NOTE | 2025-04-15 14:26 | CM ---
Initial assessment completed with patient who lives with her and 11 y/o twin daughters in a 2 story home with B/B on 2nd and 1/2 bath on 1st , 1 step to enter. 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 No DME or in-home
services. No HC-POA. No psychiatric hospitalizations. No service. PCP is Dr. Charil Kat. Pharmacy is [facility] on [address] in [place]. Discharge POC: Anticipate home with no needs.
[2025-04-15 15:00] VITALS: BP 164/83
[2025-04-15] MEDS: BENTYL 10 MG PO ×2 (16:08→22:12)
[2025-04-15 17:09] LABS: Glucose - Point of Care 113 mg/dl (70-99)
[2025-04-15 20:46] LABS: Hepatitis B Surface Antigen Negative (Negative)
[2025-04-15 21:03] LABS: Hepatitis C Antibody Negative (Negative)
[2025-04-15 23:18] VITALS: BP 141/84
[2025-04-16] MEDS: LR 1000 IV (02:04)
[2025-04-16] MEDS: SYNTHROID 88 MCG PO (06:06)
[2025-04-16 06:17] LABS: Glucose - Point of Care 97 mg/dl (70-99)
[2025-04-16 07:10] VITALS: BP 123/75
--- NOTE | 2025-04-16 09:56 | W.PN.GI.CBS2 ---
Today's Communication / Plan
-
Try low fat diet
Continue bentyl
EGD/EUS Thursday to r/o CBD stone despite negative MRI, also r/o PUD
Check f/u LFT, today's labs pending
Assessment / Plan
-
Summary: 49yo female recent hx gallstones, abd pain, underwent cholecystectomy 12/28. During that admission, TBil 4.3, AST 583, ALT 618. MRI prior to danette was negative for CBD stone. She returned to hospital with jaundice and abd pain. TB up to
5.9, AST 821, ALT 1009. MRI again negative for CBD stone, but mild IHDD/EHDD with CBD 9mm. She continued to have pain despite negative MRI and plans were made for EUS, but that day her pain resolved and d/c with possible passed stone. LFT 01/26
showed TB 1.1, AST 75, ALT 160. She was relatively pain free on PPI for 2 months. She tried stopping it last month. This last week she had severe pain after breakfast and dinner on Thursday epigastric/RUQ. She had EGD 18 yrs ago negative HP. She
takes rare NSAIDs and only used it BID for 2 days after danette.
In ER, TB 1.9, AST 721, ALT 575. Improved today slightly. She had MRI/MRCP- moderate biliary dilation without CBD stone or mass. There is moderate IHDD: CHD 1.2cm, prox CBD 1.3cm, distal CBD 8.7mm.
Impression:
Recurrent RUQ pain. CBD stone despite several negative MRIs vs SOD vs PUD
Recurrent LFT elevation s/p danette 12/28, MRI negative
Subjective
Subjective
Date of Service: April 16, 2025
Feels much better today. Abd pain improved
Report dark urine persists
Objective
Data Reviewed
Laboratory Data:
Laboratory Results
04/15/25 06:59
Laboratory Results
Total Bilirubin 1.2 mg/dl (0.2-1.3) 04/15/25 06:59
AST 594 U/L (14-36) H* 04/15/25 06:59
ALT 706 U/L (0-35) H* 04/15/25 06:59
Alkaline Phosphatase 193 U/L (38-126) H 04/15/25 06:59
Lipase 116 U/L (23-300) 04/14/25 19:43
Vital Signs and I&O:
Vital Signs
Temp Pulse Resp BP Pulse Ox
98.1 F 71 12 123/75 96
04/16/25 07:10 04/16/25 07:10 04/16/25 07:10 04/16/25 07:10 04/16/25 07:10
Physical Exam
Physical Exam
GI: Soft, Non Distended and Non Tender
[2025-04-16] MEDS: PROTONIX IV 40 MG IV ×2 (10:51→22:35)
[2025-04-16] MEDS: BENTYL 10 MG PO ×3 (10:51→22:35)
[2025-04-16] MEDS: NSS (PRESERVATIVE FREE) 10 ML IV ×2 (10:52→22:35)
[2025-04-16 11:16] LABS: Glucose - Point of Care 99 mg/dl (70-99)
[2025-04-16 11:30] LABS: AST (SGOT) 536 U/L (14-36); Albumin 4.4 g/dl (3.5-5.0); Alkaline Phosphatase 253 U/L (38-126); Blood Urea Nitrogen 12 mg/dl (7-17); Calcium 9.9 mg/dl (8.4-10.2); Carbon Dioxide 27 mmol/L (22-30); Chloride 104 mmol/L (98-107); Estimated Creatinine Clearance 93 ml/min; Glucose 100 mg/dl (70-99); Potassium 3.8 mmol/L (3.5-5.1); Sodium 138 mmol/L (135-145); Total Protein 7.6 g/dl (6.3-8.2); eGFR > 60.00
[2025-04-16 11:38] LABS: ALT (SGPT) 803 U/L (0-35)
--- NOTE | 2025-04-16 11:48 | W.PN.HOSP.TC ---
Today's Communication/Plan
-
continue current care
Assessment / Plan
Assessment / Plan
Gen-AAOx3, NAD
HEENT-NC, AT, anicteric, clear oral mm
Neck-supple
CV-reg, no M, +S1/S2
Lungs-clear B/L
Abd-soft, mild epigastric and right upper quadrant tenderness. Not distended.
Ext-no edema
Musculoskeletal-no cyanosis, clubbing
Skin-warm and dry
Neuro-grossly non-focal
Psych-calm, cooperative
Abdominal pain -with associated vomiting. Location is epigastric pain and right upper quadrant. Patient states she was taking Protonix for 2 months after her last discharge in December of this year with no symptoms. She stopped Protonix for 1 month
and then resumed 2 days ago due to recurrence of epigastric discomfort. She had an episode of vomiting at home that resolved the pain but subsequently recurred.
MRCP showed moderate biliary dilation without choledocholithiasis or obstructing mass.
Plan to EGD/EUS on 04/18 as per GI.
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
Elevated LFTs -mixed picture with transaminitis and elevated bilirubin and alkaline phosphatase.
Viral hepatitis panel pending.
Hypothyroidism -levothyroxine.
Obesity due to excess calories
Full code
Anticipated Discharge: > 48 hours
Subjective/Interval History
-
Date of Service: April 16, 2025
Patient seen/examined. Feels better, abdominal pain much improved.
Objective Data
-
Labs:
Laboratory Results
04/16/25
10:31
Sodium 138
Potassium 3.8
Chloride 104
Carbon Dioxide 27
BUN 12
Creatinine 0.8
Glucose 100 H
Calcium 9.9
Total Bilirubin 3.5 H D
AST 536 H*
ALT 803 H*
Alkaline Phosphatase 253 H
Vital Signs:
Vital Signs
Temp Pulse Resp BP Pulse Ox
98.1 F 71 12 123/75 96
04/16/25 07:10 04/16/25 07:10 04/16/25 07:10 04/16/25 07:10 04/16/25 07:10
Review of Systems
-
History Source: Patient
All other systems: Reviewed and negative
[2025-04-16 12:45] LABS: TSH 1.16 uIU/ml (0.47-4.68)
--- NOTE | 2025-04-16 12:53 | PTCARENOTE ---
Assumed care of pt from previous nurse. Pt's diet advanced to low fat, tolerated without pain or n/v. Pt call interiano is within reach, pt rings emerson. will cont to monitor.
[2025-04-16 15:36] VITALS: BP 118/71
[2025-04-16 17:19] LABS: Glucose - Point of Care 109 mg/dl (70-99)
[2025-04-16 21:13] LABS: Glucose - Point of Care 111 mg/dl (70-99)
[2025-04-16 23:53] VITALS: BP 149/86
[2025-04-17 01:34] LABS: ANA, IgG Reflex to HEp-2 None Detected (None Detected)
[2025-04-17 04:37] LABS: Mitochondrial M2 Ab, IgG 4.1 Units (0.0-24.9)
[2025-04-17] MEDS: SYNTHROID 88 MCG PO (06:35)
[2025-04-17 07:10] LABS: Glucose - Point of Care 98 mg/dl (70-99)
[2025-04-17 07:30] VITALS: BP 143/81
[2025-04-17 08:11] LABS: ALT (SGPT) 623 U/L (0-35); AST (SGOT) 232 U/L (14-36); Albumin 4.5 g/dl (3.5-5.0); Alkaline Phosphatase 250 U/L (38-126); Blood Urea Nitrogen 15 mg/dl (7-17); Calcium 9.9 mg/dl (8.4-10.2); Carbon Dioxide 26 mmol/L (22-30); Chloride 105 mmol/L (98-107); Estimated Creatinine Clearance 83 ml/min; Glucose 97 mg/dl (70-99); Sodium 140 mmol/L (135-145); Total Protein 7.8 g/dl (6.3-8.2); eGFR > 60.00
[2025-04-17 08:31] LABS: Potassium 4.0 mmol/L (3.5-5.1)
[2025-04-17] MEDS: PROTONIX IV 40 MG IV ×2 (09:00→19:39)
[2025-04-17] MEDS: BENTYL 10 MG PO ×3 (09:00→22:44)
[2025-04-17] MEDS: NSS (PRESERVATIVE FREE) 10 ML IV ×2 (09:01→19:39)
--- NOTE | 2025-04-17 09:27 | W.PN.GI.CBS2 ---
Addendum entered and electronically signed by Johnathon Jimenez MD 04/17/25 11:31:
I saw and examined the patient.
The LABORATORY EQUIPMENT INSTALLER or PA's note was reviewed and I agree with the note.
Comment: abd pain improved significantly from admission. Had some RUQ pain about 30 minutes after eating yesterday
ABD soft NTND
REC:
LFTs trending down and pain improved.
Possibly passed CBD stone, but this is same scenario as last admission
Will proceed with EGD/EUS to r/o retained CBD stone despite multiple negative MRI, r/o PUD
Also evaluate dilated CHD, proximal CBD up to 1.3cm on most recent MRI
?SOD, but ERCP/sphincterotomy is controversial with high risk for pancreatitis
Continue Bentyl
Original Note:
Today's Communication / Plan
-
abdominal pain improving
for EGD/EUS 04/18
LFT's trending down with improved abdominal pain
cont diet- NPO in AM
CELINA non detected, AMA 4.1 F- actin pending, hep A, hep B core pending, hep B Ag with prior immunity, hep C neg
Assessment / Plan
-
Pt is 49yo female recent hx gallstones, abd pain, underwent cholecystectomy 12/28. Since danette she has had intermittent epigastric pain with rise in LFT's with MRCP 01/03 with mild intrahepatic and extrahepatic biliary dilation neg for stone. She
admits to mild intermittent pain since last admission and now severe pain on admission. In ER, TB 1.9, AST 721, ALT 575 with further rise after admission. She had MRI/MRCP- moderate biliary dilation without CBD stone or mass. There is moderate
IHDD: CHD 1.2cm, prox CBD 1.3cm, distal CBD 8.7mm.
Laboratory Tests
04/14/25 04/15/25 04/16/25
19:43 06:59 10:31
Total Bilirubin 1.9 H 1.2 3.5 H D
Direct Bilirubin 0.6 H 2.1 H
AST 721 H* 594 H* 536 H*
ALT 706 H* 803 H*
Alkaline Phosphatase 201 H 193 H 253 H
04/17/25
06:33
Total Bilirubin 1.4 H D
Direct Bilirubin
AST 232 H
ALT 623 H*
Alkaline Phosphatase 250 H
Impression:
Recurrent RUQ pain. with recurrent LFT elevation --CBD stone despite several negative MRIs vs SOD vs PUD
s/p danette 12/28
fatty liver
PLAN:
abdominal pain improving
for EGD/EUS 04/18
LFT's trending down with improved abdominal pain
cont diet- NPO in AM
CELINA non detected, AMA 4.1 F- actin pending, hep A, hep B core pending, hep B Ag with prior immunity, hep C neg
Subjective
Subjective
Date of Service: April 17, 2025
low fat diet
Objective
Data Reviewed
Laboratory Data:
Laboratory Results
04/15/25 06:59
04/17/25 06:33
Laboratory Results
Total Bilirubin 1.4 mg/dl (0.2-1.3) H D 04/17/25 06:33
AST 232 U/L (14-36) H 04/17/25 06:33
ALT 623 U/L (0-35) H* 04/17/25 06:33
Alkaline Phosphatase 250 U/L (38-126) H 04/17/25 06:33
Lipase 116 U/L (23-300) 04/14/25 19:43
Vital Signs and I&O:
Vital Signs
Temp Pulse Resp BP Pulse Ox
98.2 F 87 18 143/81 98
04/17/25 07:30 04/17/25 07:30 04/17/25 07:30 04/17/25 07:30 04/17/25 07:30
I&O
04/16/25 04/17/25 04/18/25
06:59 06:59 06:59
Intake Total 480 / 480
Balance 480 / 480
Physical Exam
Physical Exam
HEENT: Anicteric and Moist mucous membranes
Cardiology: Normal Sinus Rhythm
Pulmonary: Clear
GI: Soft, Non Distended and Tender (minimal )
Extremities: No Edema
Neuro: Non Focal
--- NOTE | 2025-04-17 11:44 | CM ---
Chart reviewed. Care ongoing at this time
For EGD tomorrow per GI
Abd pain improving
Plan: Anticipate home, no needs
[2025-04-17 11:53] LABS: Glucose - Point of Care 110 mg/dl (70-99)
--- NOTE | 2025-04-17 12:15 | W.PN.HOSP.TC ---
Today's Communication/Plan
-
Monitor vital signs and see plan
Trend LFTs
Plan for EGD/EUS tomorrow per GI
Assessment / Plan
Assessment / Plan
Gen-AAOx3, NAD
HEENT-NC, AT, anicteric, clear oral mm
Neck-supple
CV-reg, no M, +S1/S2
Lungs-clear B/L
Abd-soft, mild epigastric and right upper quadrant tenderness. Not distended.
Ext-no edema
Neuro-grossly non-focal
Psych-calm, cooperative
Abdominal pain -with associated vomiting. Location is epigastric pain and right upper quadrant. Patient states she was taking Protonix for 2 months after her last discharge in December of this year with no symptoms. She stopped Protonix for 1 month
and then resumed 2 days ago due to recurrence of epigastric discomfort. She had an episode of vomiting at home that resolved the pain but subsequently recurred.
MRCP showed moderate biliary dilation without choledocholithiasis or obstructing mass.
Plan to EGD/EUS on 04/18 as per GI.
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
Elevated LFTs -mixed picture with transaminitis and elevated bilirubin and alkaline phosphatase.
Viral hepatitis panel pending.
Hypothyroidism -levothyroxine.
Obesity due to excess calories
Full code
Anticipated Discharge: 24 - 48 hours
Subjective/Interval History
-
Date of Service: April 17, 2025
Gets intermittent pain at times
Objective Data
-
Labs:
Laboratory Results
04/17/25
06:33
Sodium 140
Potassium 4.0
Chloride 105
Carbon Dioxide 26
BUN 15
Creatinine 0.9
Glucose 97
Calcium 9.9
Total Bilirubin 1.4 H D
AST 232 H
ALT 623 H*
Alkaline Phosphatase 250 H
Vital Signs:
Vital Signs
Temp Pulse Resp BP Pulse Ox
98.2 F 87 18 143/81 98
04/17/25 07:30 04/17/25 07:30 04/17/25 07:30 04/17/25 07:30 04/17/25 07:30
I&O
04/16/25 04/17/25 04/18/25
06:59 06:59 06:59
Intake Total 480 / 480
Balance 480 / 480
[2025-04-17 15:30] VITALS: BP 164/87
[2025-04-17 15:54] LABS: Glucose - Point of Care 97 mg/dl (70-99)
[2025-04-17] MEDS: SENOKOT-S 1 TABLET PO (20:34)
[2025-04-17 22:24] LABS: Glucose - Point of Care 100 mg/dl (70-99)
[2025-04-17] MEDS: MIRALAX 17 GRAMS PO (22:44)
[2025-04-17 23:00] VITALS: BP 143/79
[2025-04-18] VITALS (9 sets, daily range): BP systolic 139–162; BP diastolic 76–97
[2025-04-18] MEDS: SYNTHROID 88 MCG PO (05:55)
[2025-04-18 05:58] LABS: Glucose - Point of Care 92 mg/dl (70-99)
[2025-04-18 08:21] LABS: Hematocrit 43.8 % (37.0-47.0); Hemoglobin 14.6 g/dL (12.0-16.0); Mean Corp Hgb Conc. 33.3 g/dL (33.0-37.0); Mean Corpuscular Volume 83.9 fL (81.0-99.0); Nucleated Red Blood Cells % 0 %; Platelet Count 277 10^3/uL (130-400); Red Cell Dist. Width 12.3 % (11.5-14.5)
[2025-04-18 08:27] LABS: INR 0.90; PT 12.4 Sec (11.4-14.6)
[2025-04-18 09:09] LABS: ALT (SGPT) 469 U/L (0-35); AST (SGOT) 122 U/L (14-36); Albumin 4.8 g/dl (3.5-5.0); Alkaline Phosphatase 233 U/L (38-126); Blood Urea Nitrogen 16 mg/dl (7-17); Calcium 10.0 mg/dl (8.4-10.2); Carbon Dioxide 29 mmol/L (22-30); Chloride 105 mmol/L (98-107); Estimated Creatinine Clearance 83 ml/min; Glucose 98 mg/dl (70-99); Potassium 4.8 mmol/L (3.5-5.1); Sodium 140 mmol/L (135-145); Total Protein 8.1 g/dl (6.3-8.2); eGFR > 60.00
[2025-04-18] MEDS: BENTYL 10 MG PO ×3 (09:22→21:11)
[2025-04-18] MEDS: PROTONIX IV 40 MG IV ×2 (09:31→19:53)
[2025-04-18] MEDS: NSS (PRESERVATIVE FREE) 10 ML IV ×2 (09:34→19:53)
[2025-04-18] MEDS: FLUSH (NSS) 1 FLUSH IV (09:35)
[2025-04-18] MEDS: SENOKOT-S 1 TABLET PO ×2 (09:42→19:54)
[2025-04-18 11:36] LABS: Glucose - Point of Care 90 mg/dl (70-99)
--- NOTE | 2025-04-18 11:42 | W.PN.HOSP.TC ---
Today's Communication/Plan
-
Monitor vital signs see plan
Plan for EGD/EUS today
LFTs improving
Possible discharge later today if okay with GI after EGD/EUS
Assessment / Plan
Assessment / Plan
Gen-AAOx3, NAD
HEENT-NC, AT, anicteric, clear oral mm
Neck-supple
CV-reg, no M, +S1/S2
Lungs-clear B/L
Abd-soft, mild epigastric and right upper quadrant tenderness. Not distended.
Ext-no edema
Neuro-grossly non-focal
Psych-calm, cooperative
Abdominal pain -with associated vomiting. Location is epigastric pain and right upper quadrant. Patient states she was taking Protonix for 2 months after her last discharge in December of this year with no symptoms. She stopped Protonix for 1 month
and then resumed 2 days ago due to recurrence of epigastric discomfort. She had an episode of vomiting at home that resolved the pain but subsequently recurred.
MRCP showed moderate biliary dilation without choledocholithiasis or obstructing mass.
Plan to EGD/EUS on 04/18 as per GI. LFTs improving.
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
Elevated LFTs -mixed picture with transaminitis and elevated bilirubin and alkaline phosphatase.
Viral hepatitis panel negative
Hypothyroidism -levothyroxine.
Obesity due to excess calories
Full code
Anticipated Discharge: Within 24 hours
Subjective/Interval History
-
Date of Service: April 18, 2025
denies pain
Objective Data
-
Labs:
Laboratory Results
04/18/25
07:57
WBC 5.9
Hgb 14.6
Hct 43.8
Plt Count 277
PT 12.4
INR 0.90
Sodium 140
Potassium 4.8
Chloride 105
Carbon Dioxide 29
BUN 16
Creatinine 0.9
Glucose 98
Calcium 10.0
Total Bilirubin 1.1
AST 122 H
ALT 469 H
Alkaline Phosphatase 233 H
Vital Signs:
Vital Signs
Temp Pulse Resp BP Pulse Ox
97.7 F 56 18 140/83 99
04/18/25 07:00 04/18/25 07:00 04/18/25 07:00 04/18/25 07:00 04/18/25 07:00
I&O
04/17/25 04/18/25 04/19/25
06:59 06:59 06:59
Intake Total 480 / 480 900 / 900
Balance 480 / 480 900 / 900
[2025-04-18 17:31] LABS: Glucose - Point of Care 102 mg/dl (70-99)
[2025-04-18] MEDS: MIRALAX 17 GRAMS PO (20:06)
[2025-04-18 21:01] LABS: Glucose - Point of Care 151 mg/dl (70-99)
[2025-04-19] MEDS: SYNTHROID 88 MCG PO (06:22)
[2025-04-19 07:00] VITALS: BP 133/83
[2025-04-19 07:37] LABS: Glucose - Point of Care 121 mg/dl (70-99)
[2025-04-19] MEDS: BENTYL 10 MG PO (07:38)
[2025-04-19] MEDS: SENOKOT-S 1 TABLET PO (07:38)
[2025-04-19] MEDS: NSS (PRESERVATIVE FREE) 10 ML IV (07:39)
[2025-04-19] MEDS: PROTONIX IV 40 MG IV (07:39)
[2025-04-19 09:16] LABS: Hematocrit 41.7 % (37.0-47.0); Hemoglobin 14.4 g/dL (12.0-16.0); Mean Corp Hgb Conc. 34.5 g/dL (33.0-37.0); Mean Corpuscular Volume 83.1 fL (81.0-99.0); Nucleated Red Blood Cells % 0 %; Platelet Count 332 10^3/uL (130-400); Red Cell Dist. Width 12.0 % (11.5-14.5)
--- NOTE | 2025-04-19 09:27 | W.PN.GI.CBS2 ---
Today's Communication / Plan
-
--
-- As long as liver enzymes are stable and not worsening she can go home today.
-- Will need repeat liver enzymes in 2 weeks
-- Follow-up outpatient with Dr. Jimenez in [address] Otto in 4 to 5 months
-- Discussed diet including small meals throughout the day
-- Discussed fatty liver disease
-- Avoid alcohol, Tylenol or any other hepatotoxic medications until liver enzymes normalize
-- Will need to follow-up with PCP
Assessment / Plan
-
Pt is 49yo female recent hx gallstones, abd pain, underwent cholecystectomy 12/28. Since danette she has had intermittent epigastric pain with rise in LFT's with MRCP 01/03 with mild intrahepatic and extrahepatic biliary dilation neg for stone. She
admits to mild intermittent pain since last admission and now severe pain on admission. In ER, TB 1.9, AST 721, ALT 575 with further rise after admission. She had MRI/MRCP- moderate biliary dilation without CBD stone or mass. There is moderate
IHDD: CHD 1.2cm, prox CBD 1.3cm, distal CBD 8.7mm.
Laboratory Tests
04/14/25 04/15/25 04/16/25
19:43 06:59 10:31
Total Bilirubin 1.9 H 1.2 3.5 H D
Direct Bilirubin 0.6 H 2.1 H
AST 721 H* 594 H* 536 H*
ALT 706 H* 803 H*
Alkaline Phosphatase 201 H 193 H 253 H
04/17/25
06:33
Total Bilirubin 1.4 H D
Direct Bilirubin
AST 232 H
ALT 623 H*
Alkaline Phosphatase 250 H
Impression:
Recurrent RUQ pain. with recurrent LFT elevation --CBD stone despite several negative MRIs vs SOD vs PUD
s/p danette 12/28
fatty liver
CELINA non detected, AMA 4.1 F- actin pending, hep A, hep B core pending, hep B Ag with prior immunity, hep C neg
04/18/2025, EUS/ERCP: Mild thickness of the common bile duct but otherwise no abnormalities on EUS, 5 mm duct with no stones sludge. Normal pancreatic duct. Normal ampulla. 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
with sphincterotomy
04/19/2025: LFTs pending, patient is without pain. We went over her imaging, diet from here and follow-up
Subjective
Subjective
Date of Service: April 19, 2025
Objective
Data Reviewed
Laboratory Data:
Laboratory Results
04/19/25 08:05
Laboratory Results
PT 12.4 Sec (11.4-14.6) 04/18/25 07:57
INR 0.90 04/18/25 07:57
Total Bilirubin 1.1 mg/dl (0.2-1.3) 04/18/25 07:57
AST 122 U/L (14-36) H 04/18/25 07:57
ALT 469 U/L (0-35) H 04/18/25 07:57
Alkaline Phosphatase 233 U/L (38-126) H 04/18/25 07:57
Lipase 116 U/L (23-300) 04/14/25 19:43
Vital Signs and I&O:
Vital Signs
Temp Pulse Resp BP Pulse Ox
97.9 F 83 18 133/83 99
04/19/25 07:00 04/19/25 07:00 04/19/25 07:00 04/19/25 07:00 04/19/25 08:00
I&O
04/18/25 04/19/25 04/20/25
06:59 06:59 06:59
Intake Total 900 / 900 1360 / 1360
Balance 900 / 900 1360 / 1360
[2025-04-19 10:07] LABS: Albumin 4.9 g/dl (3.5-5.0); Chloride 101 mmol/L (98-107)
[2025-04-19 10:22] LABS: ALT (SGPT) 368 U/L (0-35); AST (SGOT) 83 U/L (14-36); Alkaline Phosphatase 208 U/L (38-126); Blood Urea Nitrogen 18 mg/dl (7-17); Calcium 9.7 mg/dl (8.4-10.2); Carbon Dioxide 25 mmol/L (22-30); Estimated Creatinine Clearance 83 ml/min; Glucose 121 mg/dl (70-99); Potassium 4.8 mmol/L (3.5-5.1); Sodium 136 mmol/L (135-145); Total Protein 8.4 g/dl (6.3-8.2); eGFR > 60.00
[2025-04-19 11:46] LABS: Glucose - Point of Care 115 mg/dl (70-99)
--- NOTE | 2025-04-19 11:57 | W.PN.HOSP.TC ---
Today's Communication/Plan
-
monitor vitals
see plan
dc today with GI f/u
time of discharge 38minutes
Assessment / Plan
Assessment / Plan
Gen-AAOx3, NAD
HEENT-NC, AT, anicteric, clear oral mm
Neck-supple
CV-reg, no M, +S1/S2
Lungs-clear B/L
Abd-soft, non tender. Not distended.
Ext-no edema
Neuro-grossly non-focal
Psych-calm, cooperative
Abdominal pain -with associated vomiting. Location is epigastric pain and right upper quadrant. Patient states she was taking Protonix for 2 months after her last discharge in December of this year with no symptoms. She stopped Protonix for 1 month
and then resumed 2 days ago due to recurrence of epigastric discomfort. She had an episode of vomiting at home that resolved the pain but subsequently recurred.
MRCP showed moderate biliary dilation without choledocholithiasis or obstructing mass.
s/p EGD/EUS on 04/18 with biliary sphincterotomy, scant amount of sludge was found. LFTs improving.
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
GI f/u outpatient. small meals advised
Elevated LFTs -mixed picture with transaminitis and elevated bilirubin and alkaline phosphatase.
Viral hepatitis panel negative
Hypothyroidism -levothyroxine.
Obesity due to excess calories
Full code
Anticipated Discharge: Today
Subjective/Interval History
-
Date of Service: April 19, 2025
denies pain
Objective Data
-
Labs:
Laboratory Results
04/19/25
08:05
WBC 10.0
Hgb 14.4
Hct 41.7
Plt Count 332
Sodium 136
Potassium 4.8
Chloride 101
Carbon Dioxide 25
BUN 18 H
Creatinine 0.9
Glucose 121 H
Calcium 9.7
Total Bilirubin 1.0
AST 83 H
ALT 368 H
Alkaline Phosphatase 208 H
Vital Signs:
Vital Signs
Temp Pulse Resp BP Pulse Ox
97.9 F 83 18 133/83 99
04/19/25 07:00 04/19/25 07:00 04/19/25 07:00 04/19/25 07:00 04/19/25 08:00
I&O
04/18/25 04/19/25 04/20/25
06:59 06:59 06:59
Intake Total 900 / 900 1360 / 1360
Balance 900 / 900 1360 / 1360
--- NOTE | 2025-04-19 12:05 | W.DCSUMMARY ---
Discharge Summary
Discharge Data
Date of Admission: 04/15/25
Date of Discharge: 04/19/25
-
Pending Results: No
Hospital Course
49-year-old female with history of cholecystectomy, hypothyroidism came to the hospital abdominal pain with associated nausea vomiting. MRCP was done which showed moderate biliary dilation without choledocholithiasis or obstructing mass. Patient
was seen by GI throughout hospitalization and underwent EGD/EUS with biliary sphincterotomy. Scant amount of sludge was found. Patient LFTs continue to improve over time. It was determined that patient's symptoms could likely be secondary to
possible sphincter of Oddi dysfunction. Over time patient's symptoms continue to improve and she was able to tolerate diet. She was then discharged home with instructions to follow-up with all her physicians outpatient.
Discharge Plan
-
Patient Disposition: Home (Routine Discharge)
Discharge Diagnosis/Procedures: Abdominal pain
Elevated LFTs
Condition: Fair
Diet: Regular
Additional Diets: Eat small frequent meals
Activity: No restrictions
Driving Restrictions: As prior to admission
Bathing Restrictions: None
Blood Work: CMP next week with PCP
Referrals:
Johnathon Jimenez MD [Active, Gastroenterology]
Referral Note: follow up 1 month for general GI care- fatty liver, colonoscopy
Armen Otto MD [Active, Gastroenterology]
Referral Note: follow up 5 months with concern for sphincter of Abner dysfunction. Call of any recurrent pain. If severe go to ER.
Charli Kat MD [Family Provider, Family Practice] - in less than 1 week
Prescriptions:
New
sennosides-docusate sodium 8.6-50 mg Tablet
1 tab PO BID PRN (Reason: Constipation) Qty: 0 0RF
dicyclomine 10 mg Capsule
10 mg PO TID Qty: 21 0RF
Continued
levothyroxine [Synthroid] 88 mcg Tablet
88 mcg PO DAILY
pantoprazole [Protonix] 40 mg tablet,delayed release (DR/EC)
40 mg PO DAILY Qty: 30 0RF
Discharge Orders:
Discharge Patient (As Directed); Ordered 04/19/25
Ordered By: El Omalley
Discharge Date and Time
Discharge Date/Time: 04/19/25 14:27
Print Language: SWEDISH
--- NOTE | 2025-04-19 12:10 | CM ---
Home today no needs.
Plan; Home with spouse.
[2025-04-19 14:16] VITALS: BP 135/79
== END 2025-04-19 14:27 | disposition home or self-care (01) | DRG 446 ==
LOC: 4 WEST ACU 02:39
PROVIDERS: Emergency Medicine; Hospitalist; Internal Medicine Gastroenterology; Nurse Practitioner Adult Health; ADMITTING PHYSICIAN Hospitalist; ATTENDING PHYSICIAN Internal Medicine; CONSULT PHYSICIAN Specialist; EMERGENCY PHYSICIAN Student in an Organized Health Care Education/Training Program; FAMILY PHYSICIAN Family Medicine
PROC: BF101ZZ Fluoroscopy of Bile Ducts using Low Osmolar Contrast (ICD-10-PCS; 2025-04-18)
PROC: 0DJ08ZZ Inspection of Upper Intestinal Tract, Via Natural or Artificial Opening Endoscopic (ICD-10-PCS; 2025-04-18)
PROC: 0F798ZZ Dilation of Common Bile Duct, Via Natural or Artificial Opening Endoscopic (ICD-10-PCS; 2025-04-18)
DX: K82.8 Other specified diseases of gallbladder (principal); E03.9 Hypothyroidism, unspecified; Z90.49 Acquired absence of other specified parts of digestive tract; Z79.890 Hormone replacement therapy; E66.09 Other obesity due to excess calories; Z68.33 Body mass index [BMI] 33.0-33.9, adult; K76.0 Fatty (change of) liver, not elsewhere classified; K83.8 Other specified diseases of biliary tract; K91.5 Postcholecystectomy syndrome
CPT/HCPCS: 74177; 74183; 74330; 76000; 76705; 80048; 80053; 80076; 82248; 82962; 83036; 83690; 84443; 85025; 85027; 85610; 86015; 86038; 86381; 86705; 86706; 86709; 86803; 87340; 99285; A9575; C1769; Q9967